=== PATIENT | female | born 1995 | race Hispanic/Latino ===

== ENCOUNTER 2020-07-08 11:27 | Emergency (ER) | payer OTHER, SELFPAY ==
--- NOTE | 2020-07-08 12:00 | ER ---
Nurse's Notes [facility] Name: Amy Rey Age: 25 yrs Sex: Female : 1995 Arrival Date: 07/08/2020 Time: 11:28 Bed Waiting Private MD: Diagnosis: Allergic contact dermatitis Presentation: 07/08 11:47 Chief complaint: Patient states: unsure if she is having a localized skin reaction to sv her Levemir injection. The rash is noted where she injects her insulin, noticed it Saturday. Coronavirus screen: Client denies travel out of the [place] in the last 14 days. At this time, the client does not indicate any symptoms associated with coronavirus-19. Ebola Screen: No symptoms or risks identified at this time. Onset: The symptoms/episode began/occurred suddenly. Anaphylaxis evaluation, no signs or symptoms of anaphylaxis were noted. Risk Assessment: Do you want to hurt yourself or someone else? Patient reports no desire to harm self or others. Onset of symptoms was July 05, 2020. 11:47 Method Of Arrival: Ambulatory sv 11:47 Acuity: TARAH 4 sv 11:50 Initial Sepsis Screen: Does the patient meet any 2 criteria? No. Patient's initial sv sepsis screen is negative. Does the patient have a suspected source of infection? No. Patient's initial sepsis screen is negative. Triage Assessment: 11:52 General: Appears in no apparent distress. comfortable, obese, well groomed, well sv developed, Behavior is calm, cooperative, appropriate for age. Pain: Denies pain. Neuro: Level of Consciousness is awake, alert, obeys commands, Oriented to person, place, time, situation, Moves all extremities. Full function Gait is steady. Respiratory: Respiratory effort is even, unlabored, Respiratory pattern is regular, symmetrical. Derm: Skin is pink, warm \T\ dry. Rash noted that is itchy, red, on umbilical area. Historical: - Allergies: 11:50 [place]; sv 11:50 Jake leches; sv - PMHx: 11:50 Diabetes - IDDM; sv - PSHx: 11:50 None; sv - Immunization history:: Flu vaccine is not up to date. - Social history:: Smoking status: Patient denies any tobacco usage or history of. Screenin:00 Abuse screen: Denies threats or abuse. Denies injuries from another. Nutritional sv screening: No deficits noted. Tuberculosis screening: No symptoms or risk factors identified. Fall Risk None identified. Assessment: 12:00 Reassessment: Patient appears in no apparent distress at this time. No changes from sv previously documented assessment. Patient and/or family updated on plan of care and expected duration. Pain level reassessed. Patient is alert, oriented x 3, equal unlabored respirations, skin warm/dry/pink. Vital Signs: 11:50 BP 127 / 94; Pulse 98; Resp 18; Temp 97.3; Pulse Ox 100% ; sv ED Course: 11:28 Patient arrived in ED. ag5 11:47 Arm band placed on. sv 11:49 Triage completed. sv 11:51 Estefany Rico FNP-C is [facility]. kb 11:51 Roel Huggins MD is Attending Physician. kb 12:00 Nurse Practitioner and/or Physician Data Warehousing Architect to see patient. sv 12:00 Patient has correct armband on for positive identification. sv 12:00 No provider procedures requiring assistance completed. Patient did not have IV access sv during this emergency room visit. Administered Medications: No medications were administered Outcome: 12:00 Discharge ordered by MD. kb 12:05 Discharged to home ambulatory. sv 12:05 Condition: stable 12:05 Discharge instructions given to patient, Instructed on discharge instructions, follow up and referral plans. Demonstrated understanding of instructions, follow-up care. 12:05 Patient left the ED. sv Signatures: Estefany Rico FNP-C FNP-Ckb Verde, Stephanie RN RN Nav Page ag5 Corrections: (The following items were deleted from the chart) 11:52 11:50 Pulse 98bpm; Resp 18bpm; Pulse Ox 100%; Temp 97.3F; sv sv
--- NOTE | 2020-07-08 12:00 | EDPHYS ---
Physician Documentation [facility] Name: Amy Rey Age: 25 yrs Sex: Female : 1995 Arrival Date: 07/08/2020 Time: 11:28 Bed Waiting Private MD: ED Physician Roel Huggins HPI: 07/08 14:08 This 25 yrs old Female presents to ER via Ambulatory with complaints of kb Allergic Reaction. 14:08 The patient presents with itching, rash. Onset: The symptoms/episode began/occurred 1 kb week(s) ago. Associated signs and symptoms: Pertinent positives: rash, Pertinent negatives: abdominal pain, Altered mental status chest pain, dysphagia, fever, headache, hives, Light headed nausea, shortness of breath, swelling, Syncope vomiting. Possible causes: insulin injection. At home the patient or guardian has treated the symptoms with nothing. Severity of symptoms: At their worst the symptoms were mild in the emergency department the symptoms are unchanged. The patient has not experienced similar symptoms in the past. The patient has not recently seen a physician. Pt reports she has been getting a rash in every spot she has been injecting her insulin this week. Reports itching to rash. Historical: - Allergies: 11:50 [place]; sv 11:50 Jake leches; sv - PMHx: 11:50 Diabetes - IDDM; sv - PSHx: 11:50 None; sv - Immunization history:: Flu vaccine is not up to date. - Social history:: Smoking status: Patient denies any tobacco usage or history of. ROS: 14:03 Constitutional: Negative for fever, chills, and weight loss, Cardiovascular: Negative kb for chest pain, palpitations, and edema, Respiratory: Negative for shortness of breath, cough, wheezing, and pleuritic chest pain, Abdomen/GI: Negative for abdominal pain, nausea, vomiting, diarrhea, and constipation, MS/Extremity: Negative for injury and deformity, Neuro: Negative for headache, weakness, numbness, tingling, and seizure. 14:03 Skin: Positive for rash, of the abdomen. Exam: 14:09 Constitutional: This is a well developed, well nourished patient who is awake, alert, kb and in no acute distress. Head/Face: Normocephalic, atraumatic. Chest/axilla: Normal chest wall appearance and motion. Nontender with no deformity. No lesions are appreciated. Cardiovascular: Regular rate and rhythm with a normal S1 and S2. No gallops, murmurs, or rubs. Normal PMI, no JVD. No pulse deficits. Respiratory: Lungs have equal breath sounds bilaterally, clear to auscultation and percussion. No rales, rhonchi or wheezes noted. No increased work of breathing, no retractions or nasal flaring. Abdomen/GI: Soft, non-tender, with normal bowel sounds. No distension or tympany. No guarding or rebound. No evidence of tenderness throughout. MS/ Extremity: Pulses equal, no cyanosis. Neurovascular intact. Full, normal range of motion. Neuro: Awake and alert, GCS 15, oriented to person, place, time, and situation. Cranial nerves II-XII grossly intact. Motor strength 5/5 in all extremities. Sensory grossly intact. Cerebellar exam normal. Normal gait. 14:09 Skin: rash a mild rash is noted, consistent with contact dermatitis, on the abdomen. Vital Signs: 11:50 BP 127 / 94; Pulse 98; Resp 18; Temp 97.3; Pulse Ox 100% ; sv MDM: 12:00 Patient medically screened. kb 14:03 Data reviewed: vital signs, nurses notes. Data interpreted: Pulse oximetry: on room air kb is 100 %. Interpretation: normal. Counseling: I had a detailed discussion with the patient and/or guardian regarding: the historical points, exam findings, and any diagnostic results supporting the discharge/admit diagnosis, the need for outpatient follow up, a family practitioner, to return to the emergency department if symptoms worsen or persist or if there are any questions or concerns that arise at home. Administered Medications: No medications were administered Disposition: 07/08/20 12:00 Discharged to Home. Impression: Allergic contact dermatitis. - Condition is Stable. - Discharge Instructions: Contact Dermatitis, [id number]. - Medication Reconciliation Form, Thank You Letter, Antibiotic Education, Prescription Opioid Use form. - Follow up: Emergency Department; When: As needed; Reason: Worsening of condition. Follow up: Private Physician; When: 2 - 3 days; Reason: Recheck today's complaints, Continuance of care, Re-evaluation by your physician. Addendum: 07/09/2020 13:19 Co-signature as Attending Physician, Roel Huggins MD I agree with the assessment and k dr plan of care. Signatures: Estefany Rico, MELANI-C EQUALIZING SAW OPERATOR-Yasmeen Israel, RN RN Roel Bush MD MD [facility] Corrections: (The following items were deleted from the chart) 07/08 12:05 12:00 07/08/2020 12:00 Discharged to Home. Impression: Allergic contact dermatitis. sv Condition is Stable. Forms are Medication Reconciliation Form, Thank You Letter, Antibiotic Education, Prescription Opioid Use. Follow up: Emergency Department; When: As needed; Reason: Worsening of condition. Follow up: Private Physician; When: 2 - 3 days; Reason: Recheck today's complaints, Continuance of care, Re-evaluation by your physician. kb
[2020-07-08 13:02] VITALS: BP 127/94; TEMP 97.3; O2SAT 100
== END 2020-07-08 12:05 | disposition home or self-care (01) ==
LOC: ER 11:27
DX: L23.9 Allergic contact dermatitis, unspecified cause (principal); E11.9 Type 2 diabetes mellitus without complications; Z91.018 Allergy to other foods
CPT/HCPCS: 99281

== ENCOUNTER 2020-09-13 03:08 | Inpatient (IN) | payer OTHER ==
[2020-09-13] MEDS ORDERED: PROMETHAZINE INJ 25 MG/ML AMP IM PRN (03:42)
[2020-09-13] MEDS ORDERED: CARBOPROST TROME 250 MCG/ML IM PRN (03:42)
[2020-09-13] MEDS ORDERED: BUTORPHANOL 1 MG/ML INJ IV PRN (03:42)
[2020-09-13] MEDS ORDERED: METHYLERGONOVINE 0.2MG/ML AMP IM PRN (03:42)
[2020-09-13] MEDS ORDERED: Ringers Lactate 1,000 ML IV PRN (04:00)
[2020-09-13] MEDS ORDERED: Ringers Lactate 1,000 ML IV SCH (04:00)
[2020-09-13] MEDS ORDERED: OXYTOCIN/LR 20 UNIT/1,000 ML BAG IV SCH ×2 (04:00→13:00)
--- OUTSIDE RECORDS SUMMARY | 2020-09-13 04:31 | XMS REPORT | Continuity of Care Document ---
:1995 Author Organization [facility] t Address [address] [place] [address] Care Team Providers Name Role Phone Julianna Goncalves Attending Clinician Problems This patient has no known problems. Allergies, Adverse Reactions, Alerts This patient has no known allergies or adverse reactions. Medications This patient has no known medications. Procedures This patient has no known procedures. Encounters Start End Encounter Admission Attending Care Care Encounter Source Date/Time Date/Time Type Type Clinicians Facility Department ID 2020-02-03 2020-02-03 Telephone [facility] [id number] 00:00:00 00:00:00 Ericka Levine MANAGER CONSUMER [id number] [facility] [id number] MATERNAL [id number] & CHILD [address] [place] [address] Results This patient has no known results.
[2020-09-13 05:37] VITALS: BMI 38.4
[2020-09-13 05:39] LABS: Absolute Lymphocytes (CBC) 2.7 K/uL (0.7-4.9); Basophils % 0.2 % (0-1.3); Lymphocytes % 31.7 % (15.3-44.8); RBC Red Blood Cell Count 4.61 M/uL (3.86-4.86)
[2020-09-13 05:53] LABS: Urine Appearance CLOUDY; Urine Bilirubin NEGATIVE (NEG); Urine Blood 1+ (NEG); Urine Color YELLOW; Urine Glucose NEGATIVE (NEG); Urine Microscopic Reflex ORDER UMIC; Urine Protein NEGATIVE (NEG); Urine Specific Gravity 1.025 (1.005-1.030)
[2020-09-13 06:02] LABS: Urine Bacteria 20-50 /HPF (<20); Urine RBC <5 /HPF (NONE SEEN)
[2020-09-13] MEDS ORDERED: INFLUENZA VACCINE (for 3y+) 0.5 ML DOSE IMVAC ONE (08:00)
--- NOTE | 2020-09-13 08:02 | PREOPHP ---
Date of Admission: 09/13/2020 History Of Present Illness: 25-year-old 5, para 2, followed antepartum, noted to be insulin- dependent diabetic, seen in conjunction with Dr. Daley, high-at risk paraprofessional in [facility]. The patient is Rh AB positive, immune to Rubella. COVID negative. Strep negative, now at 38 weeks and 2 to 3 days, has been advised by high-at risk paraprofessional, she will be delivered between 38 and 39 weeks. The patient is now 2 cm, 60% effaced, vertex applied, still somewhat posterior ruptur e membranes, very light meconium, no particulate matter. Full labor talk given. The patient is not really having good firm contractions yet. I think that that will change here in the next hour. She is still undecided about whether or not she wants epidural anesthesia. She had that with the last de livery. The patient is also noted to have uterine fibroid as an incidental finding. Family History: Noncontributory. Allergies: THE PATIENT HAS NO ALLERGIES. Physical Examination: HEENT: Clear. Pupils equal, round, and reactive to light and accommodation. Conjunctivae well perf used. No oral, lingual, or buccal lesions. Chest/Lungs: Clear. Heart: Without murmurs, thrills, heaves, or rubs. Breasts: Without masses on previous visits. Abdomen: Term size. Extremities: Clear without edema, cyanosis, or clubbing. Pelvic: As stated. Assessment/plan: Essentially healthy female, intrauterine gestation 38 weeks 2 to 3 days, insulin-de pendent diabetic for delivery. She is a silent carrier of thalassemia. negative. NBC/MODL Voice ID: [id number]
[2020-09-13] MEDS ORDERED: FENTANYL CITR 100 MCG/2 ML IV ONE (10:36)
[2020-09-13] MEDS ORDERED: ROPIVACAINE HCL 0.2% 20ML AMP IV ONE (10:39)
[2020-09-13] MEDS ORDERED: ROPIVACAINE HCL/PF 0.2% 10 ML VIAL IV ONE (10:39)
[2020-09-13] MEDS ORDERED: ROPIVACAINE HCL 100 ML EP ONE (11:20)
[2020-09-13] MEDS ORDERED: LIDOCAINE 1% MPF 30 ML VIAL ONE (11:24)
[2020-09-13] MEDS ORDERED: ACETAMINOPHEN 500 MG TAB PO PRN (12:12)
[2020-09-13] MEDS ORDERED: Oxycodone HCl/Acetaminophen 1 TAB TAB PO PRN ×2 (12:12)
[2020-09-13] MEDS ORDERED: BISACODYL 10 MG RECTAL SUPP RC PRN (12:12)
[2020-09-13] MEDS ORDERED: DIPHENHYDRAMINE 25 MG TAB/CAP PO PRN (12:12)
[2020-09-13] MEDS ORDERED: DOCUSATE NA/SENNA CONC 1 TAB PO PRN (12:12)
--- NOTE | 2020-09-13 12:36 | OP ---
Surgeon: Bernardo Miranda MD Indications For Procedure: This is a 25-year-old, 5, para 2, 38 weeks 2 days, followed antep artum, noted to be insulin-dependent diabetic, seen in conjunction with Dr. Avila who recommended de livery between 38 and 39 weeks. She is AB positive, immune, rubella, COVID negative, strep negative. This morning, she was 2 cm rupture of membranes, very light meconium, no particulate matter noted. FHTs normal, reactive throughout the labor, requested and received epidural anesthesia at 4 cm, went rapidly to complete second stage of 10 minutes or less, spontaneous vaginal delivery of an estimated 7 pounds female, Apgars 9 and 9. No episiotomy. No lacerations. Rapid Schultze delivery of the pl acenta, which was inspected and noted to be intact and normal, 350 cc or less blood loss. The patien t tolerated all procedures well. Blood sugars this morning in the 95 range. Final Diagnoses: Intrauterine gestation, 38 weeks 2 days, insulin-dependent diabetes, labor inductio n, vaginal delivery, epidural anesthesia, incidental uterine fibroid. NBC/MODL Voice ID: [id number] Report ID: [id number]
[2020-09-13] MEDS ORDERED: Ringers Lactate 2,000 ML IV ONE (15:08)
[2020-09-13] MEDS ORDERED: OXYTOCIN/LR 20 UNIT/1,000 ML BAG IV ONE (15:08)
[2020-09-13] MEDS: IBUPROFEN 600 MG TAB PO PRN (20:10)
[2020-09-13 23:54] LABS: RPR (Rapid Plasma Reagin) NON-REACT (NON-REACT)
[2020-09-14] MEDS: IBUPROFEN 600 MG TAB PO PRN ×2 (04:52→13:20)
--- NOTE | 2020-09-14 08:04 | DS ---
Hospital Course: 25-year-old 5, para 2, followed antepartum without complications other than as noted to be an insulin-dependent diabetic and had uterine fibroid, seen in consultation with Dr. Daley, high-director security risk management, [facility], 38 weeks 2 days. Delivered of a 6 pounds 11 ounces female, Apgars 9 and 9. Very slight meconium with rupture of membranes. Epidural anesthe oralia. No episiotomy. No lacerations. Less than 350 cc blood loss with Schultze delivery of the plac enta. Rh positive, immune to rubella, negative strep, negative COVID, , afebrile, ambulati ng, and voiding. Lochia is normal. Offered Tdap and flu shots. No post epidural problems. Request s no analgesics. Will be seen in my office in 6 weeks to report any temperature elevation of 100 deg laura or greater, severe pain, heavy bleeding, or any other type abnormalities. Final Diagnoses: Intrauterine gestation, 38 weeks 2 days, insulin-dependent diabetic, labor inductio n, vaginal delivery, epidural anesthesia. Tdap and flu shots offered. BRI/EZIO Voice ID: [id number] Report ID: [id number]
[2020-09-14 09:09] VITALS: TEMP 97.4
[2020-09-14] MEDS ORDERED: Tdap (Diph,Pertuss(Acell),Tet Vac) 0.5 ML SYR IMVAC ONE (11:08)
[2020-09-14] MEDS ORDERED: INFLUENZA VACCINE (for 3y+) 0.5 ML DOSE IMVAC ONE (11:38)
[2020-09-14 11:57] VITALS: BP 137/77
== END 2020-09-14 15:10 | disposition home or self-care (01) | DRG 807 ==
LOC: 2ND-WC 04:30
PROVIDERS: ADMIT Specialist; ATTEND Specialist
PROC: 10E0XZZ Delivery of Products of Conception, External Approach (ICD-10-PCS; principal; 2020-09-13)
PROC: 10907ZC Drainage of Amniotic Fluid, Therapeutic from Products of Conception, Via Natural or Artificial Opening (ICD-10-PCS; 2020-09-13)
PROC: 3E033VJ Introduction of Other Hormone into Peripheral Vein, Percutaneous Approach (ICD-10-PCS; 2020-09-13)
DX: O24.32 Unspecified pre-existing diabetes mellitus in childbirth (principal); Z37.0 Single live birth; O34.13 Maternal care for benign tumor of corpus uteri, third trimester; D25.9 Leiomyoma of uterus, unspecified; D56.8 Other thalassemias; E11.9 Type 2 diabetes mellitus without complications; Z79.4 Long term (current) use of insulin; Z20.828 Contact with and (suspected) exposure to other viral communicable diseases; Z23 Encounter for immunization
CPT/HCPCS: 36415; 81003; 81015; 85025; 86592; 86850; 86900; 86901; 87077; 87086; 87088; 87186; 90471; 90715; J0595; J2210; J2550; J2590; J2795; J3010; J7120; Q2035; U0003

== ENCOUNTER → 2022-01-21 | Day surgery (SDC) | payer OTHER ==
[~2022-01-21] MED LIST: BUPIVACAINE 0.5% PF 10 ML VIAL ONE; CIPROFLOXACIN 400mg IV 400 MG/200 ML BAG IV ONE; FAMOTIDINE 20 MG/2 ML VIAL IV ONE; FENTANYL CITR 100 MCG/2 ML ONE; GLYCOPYRROLATE 0.2 MG/ML SYR ONE; HYDROCODONE/APAP 7.5/325 MG TAB ONE; HYDROCODONE/APAP 7.5/325 MG TAB PO PRN; KETOROLAC 30 MG/ML INJ ONE; LIDOCAINE 1% MPF 5 ML VIAL ONE; MEPERIDINE HCL 25 MG/ML SYR ONE; METRONIDAZOLE 500mg IVPB 500 MG/100 ML BAG IV ONE; MIDAZOLAM HCL 2 MG/2 ML INJ ONE; MORPHINE 10 MG/ML VIAL ONE; MORPHINE 4 MG/ML SYR ONE; Mastisol Adhesive Liq ONE; NA CHLORIDE 0.9% 1,000 ML ONE; NEOSTIGMINE 1 MG/ML -5 ML ONE; ONDANSETRON 4 MG/2 ML VIAL ONE; ROCURONIUM 50 MG/5 ML VIAL IV ONE; dexAMETHasone 4 MG/ML VIAL ONE; propofoL 200 MG/20 ML VIAL IV ONE
[2022-01-21 08:03] LABS: Urine Blood Negative (Negative); Urine Glucose Negative (Negative); Urine Protein 2+ (Negative); Urine Specific Gravity >=1.030 (1.005-1.030)
[2022-01-21 08:36] LABS: Absolute Lymphocytes (CBC) 2.7 K/uL (0.7-4.9); Hematocrit 36.6 % (36.0-45.0); Lymphocytes % 36.8 % (15.3-44.8); MPV 7.6 fL (7.6-11.3); RBC Red Blood Cell Count 4.87 M/uL (3.86-4.86)
--- NOTE | 2022-01-21 08:49 | RAD REPORT ---
EXAM DESCRIPTION: CTAbdomen Pelvis W Contrast - 01/21/2022 8:41 am CLINICAL HISTORY: Abdominal pain. RLQ abdominal pain COMPARISON: No comparisons TECHNIQUE: Biphasic CT imaging of the abdomen and pelvis was performed with 100 ml non-ionic IV cont rast. All CT scans are performed using dose optimization technique as appropriate and may include automated exposure control or mA/KV adjustment according to patient size. FINDINGS: The lung bases are clear. The liver is diffusely fatty. Spleen, pancreas, adrenal glands and kidneys are within normal limits. No bowel obstruction, free air, free fluid or abscess. Large fat containing umbilical hernia is prese nt which demonstrates mild fluid and fat stranding suggesting incarceration. The appendix is normal. No evidence of significant lymphadenopathy. No suspicious bony findings. IMPRESSION: Large umbilical hernia suspected to be incarcerated. Fatty liver.
[2022-01-21 08:54] LABS: ALT/SGPT 75 U/L (12-78); AST/SGOT 30 U/L (15-37); Albumin 2.9 g/dL (3.4-5.0); Alkaline Phosphatase 103 U/L (45-117); BUN Blood Urea Nitrogen 12 mg/dL (7-18); Bicarbonate 23 mmol/L (21-32); Bilirubin Total 0.2 mg/dL (0.2-1.0); Glucose Level 134 mg/dL (74-106); Lipase 101 U/L (73-393); Potassium 3.7 mmol/L (3.5-5.1); Protein, Total 6.9 g/dL (6.4-8.2); Sodium Level 140 mmol/L (136-145)
--- NOTE | 2022-01-21 09:30 | ER ---
Nurse's Notes [facility] Name: Amy Rey Age: 26 yrs Sex: Female : 1995 Arrival Date: 01/21/2022 Time: 07:40 Bed 20 Private MD: Diagnosis: Incarcerated umbilical hernia Presentation: 01/21 07:55 Chief complaint: Patient states: pt presented to Ed reporting abdominal pain that perry radiates to right sided back. Coronavirus screen: Vaccine status: Patient reports being unvaccinated. Ebola Screen: Patient denies travel to an Ebola-affected area in the 21 days before illness onset. Initial Sepsis Screen: Does the patient meet any 2 criteria? HR > 90 bpm. Does the patient have a suspected source of infection? No. Patient's initial sepsis screen is negative. Risk Assessment: Do you want to hurt yourself or someone else? Patient reports no desire to harm self or others. Onset of symptoms was January 18, 2022. 07:55 Method Of Arrival: Ambulatory 07:55 Acuity: TARAH 3 perry Triage Assessment: 07:56 General: Appears in no apparent distress. Behavior is calm, cooperative. Pain: perry Complains of pain in right lower quadrant and left lower quadrant. GI: Abdomen is non-distended, obese, Bowel sounds present X 4 quads. Reports nausea. :. SPIN INSTRUCTOR: 07:56 LMP N/A - Irregular menses perry Historical: - Allergies: 07:56 citrus; perry 07:56 Jake leches; peryr - PMHx: 07:56 Diabetes - IDDM; polycystic ovarian syndome; perry - Immunization history:: Adult Immunizations up to date. - Social history:: Smoking status: Patient denies any tobacco usage or history of. Screenin:59 Abuse screen: Denies threats or abuse. Denies injuries from another. Nutritional perry screening: No deficits noted. Tuberculosis screening: No symptoms or risk factors identified. Fall Risk None identified. Assessment: 07:59 GI: Abd is soft and non tender X 4 quads. perry Vital Signs: 07:55 BP 125 / 95; Pulse 99; Resp 18; Temp 98.2(T); Pulse Ox 97% ; Weight 105.23 kg; Height 5 perry ft. 3 in. (160.02 cm); 07:55 Body Mass Index 41.10 (105.23 kg, 160.02 cm) perry ED Course: 07:40 Patient arrived in ED. as 07:51 Roel Huggins MD is Attending Physician. kdr 07:55 Gracie Villafuerte, RN is Primary Nurse. perry 07:56 Triage completed. perry 07:56 Arm band placed on. perry 07:59 Patient has correct armband on for positive identification. Bed in low position. perry 07:59 No provider procedures requiring assistance completed. perry 08:33 Inserted saline lock: 20 gauge in right antecubital area, using aseptic technique. perry 08:42 CT Abd/Pelvis - IV Contrast Only In Process Unspecified. EDMS 09:28 Owen Manzano MD is Hospitalizing Provider. kdr Administered Medications: 08:31 Drug: Zofran (Ondansetron) 4 mg Route: IVP; Site: right antecubital; perry 08:33 Follow up: Response: No adverse reaction peryr 08:31 Drug: NS 0.9% 1000 ml Route: IV; Rate: 1 bolus; Site: right antecubital; perry 08:31 Drug: Pepcid (famotidine) 20 mg Route: IVP; Site: right antecubital; perry 08:33 Follow up: Response: No adverse reaction perry 08:32 Drug: morphine 4 mg Route: IVP; Site: right antecubital; perry 08:33 Follow up: Response: No adverse reaction perry 09:52 Drug: Cipro (ciprofloxacin) 400 mg Volume: 200 ml; Route: IVPB; Infused Over: 60 mins; perry Site: right antecubital; Outcome: 09:29 Decision to Hospitalize by Provider. kdr 10:55 Patient left the ED. eb Signatures: Dispatcher [employer] EDPR Roel Huggins MD MD kdr Jeannine Guadarrama Elizabeth Gracie Villafuerte RN RN perry
--- NOTE | 2022-01-21 09:30 | EDPHYS ---
Physician Documentation [facility] Name: Amy Rey Age: 26 yrs Sex: Female : 1995 Arrival Date: 01/21/2022 Time: 07:40 Bed 20 Private MD: ED Physician Roel Huggins HPI: 01/21 09:30 This 26 yrs old Female presents to ER via Ambulatory with complaints of kdr Abdominal Pain, Back Pain. 09:30 The patient presents with abdominal pain in the periumbilical area. Onset: The kdr symptoms/episode began/occurred Patient states that on Saturday she was lifting her child and had pain in her abdomen around her umbilicus. Since then she has had persistent pain. It has somewhat worsened since then. She has not had any fever chills nausea or vomiting. The pain has been consistent and persistent. She has not had pain like this before. She otherwise appears nontoxic and not emergent in the ED.. The symptoms radiate to the right flank. Associated signs and symptoms: none. The symptoms are described as achy, sharp, steady. Modifying factors: The symptoms are alleviated by nothing, the symptoms are aggravated by coughing, breathing deeply, movement, touching the area. Severity of pain: At its worst the pain was moderate in the emergency department the pain is unchanged. The patient has not experienced similar symptoms in the past. The patient has not recently seen a physician. 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 - Social history:: Smoking status: Patient denies any tobacco usage or history of. ROS: 09:30 Constitutional: Negative for fever, chills, and weight loss, Eyes: Negative for injury, kdr pain, redness, and discharge, ENT: Negative for injury, pain, and discharge, Neck: Negative for injury, pain, and swelling, Cardiovascular: Negative for chest pain, palpitations, and edema, Respiratory: Negative for shortness of breath, cough, wheezing, and pleuritic chest pain, Back: Negative for injury and pain, : Negative for injury, bleeding, discharge, and swelling, MS/Extremity: Negative for injury and deformity, Skin: Negative for injury, rash, and discoloration, Neuro: Negative for headache, weakness, numbness, tingling, and seizure activity. Psych: Negative for depression, anxiety, suicide ideation, homicidal ideation, and hallucinations, Allergy/Immunology: Negative for hives, rash, and allergies, Endocrine: Negative for neck swelling, polydipsia, polyuria, polyphagia, and marked weight changes, Hematologic/Lymphatic: Negative for swollen nodes, abnormal bleeding, and unusual bruising. 09:30 Abdomen/GI: Positive for abdominal pain, nausea. Exam: 09:30 Constitutional: This is a well developed, well nourished patient who is awake, alert, kdr and in no acute distress. Head/Face: Normocephalic, atraumatic. Eyes: Pupils equal round and reactive to light, extra-ocular motions intact. Lids and lashes normal. Conjunctiva and sclera are non-icteric and not injected. Cornea within normal limits. Periorbital areas with no swelling, redness, or edema. Neck: Trachea midline, no thyromegaly or masses palpated, and no cervical lymphadenopathy. Supple, full range of motion without nuchal rigidity, or vertebral point tenderness. No Meningismus. Chest/axilla: Normal chest wall appearance and motion. Nontender with no deformity. No lesions are appreciated. Cardiovascular: Regular rate and rhythm with a normal S1 and S2. No gallops, murmurs, or rubs. Normal PMI, no JVD. No pulse deficits. Respiratory: Lungs have equal breath sounds bilaterally, clear to auscultation and percussion. No rales, rhonchi or wheezes noted. No increased work of breathing, no retractions or nasal flaring. Back: No spinal tenderness. No costovertebral tenderness. Full range of motion. Skin: Warm, dry with normal turgor. Normal color with no rashes, no lesions, and no evidence of cellulitis. MS/ Extremity: Pulses equal, no cyanosis. Neurovascular intact. Full, normal range of motion. Neuro: Awake and alert, GCS 15, oriented to person, place, time, and situation. Cranial nerves II-XII grossly intact. Motor strength 5/5 in all extremities. Sensory grossly intact. Cerebellar exam normal. Normal gait. Psych: Awake, alert, with orientation to person, place and time. Behavior, mood, and affect are within normal limits. 09:30 Abdomen/GI: Inspection: Focal abdominal pain in the periumbilical region. No mass is palpable but the patient is significantly obese which makes palpation and reduction of any significant hernia difficult. Vital Signs: 07:55 BP 125 / 95; Pulse 99; Resp 18; Temp 98.2(T); Pulse Ox 97% ; Weight 105.23 kg; Height 5 perry ft. 3 in. (160.02 cm); 07:55 Body Mass Index 41.10 (105.23 kg, 160.02 cm) perry MDM: 09:29 Patient medically screened. kdr 09:30 Data reviewed: vital signs, nurses notes, lab test result(s), radiologic studies. kdr Counseling: I had a detailed discussion with the patient and/or guardian regarding: the historical points, exam findings, and any diagnostic results supporting the discharge/admit diagnosis, lab results, radiology results, the need for further work-up and treatment in the hospital. Physician consultation: Owen Manzano MD regarding consult, patient's condition, need to come to ED to see patient, and will see patient in OR, shortly. 01/21 08:03 Order name: Urine Dipstick-Ancillary; Complete Time: 08:05 EDKS 01/21 08:04 Order name: Urine --Ancillary (enter results); Complete Time: 09:08 eb 01/21 08:07 Order name: CBC with Diff; Complete Time: 09:08 kdr 01/21 08:07 Order name: CMP; Complete Time: 09:08 kdr 01/21 08:07 Order name: Lipase; Complete Time: 09:08 kdr 01/21 08:07 Order name: CT Abd/Pelvis - IV Contrast Only; Complete Time: 09:08 kdr 01/21 08:07 Order name: IV Saline Lock; Complete Time: 08:33 kdr 01/21 08:07 Order name: Labs collected and sent; Complete Time: 08:33 kdr Administered Medications: 08:31 Drug: Zofran (Ondansetron) 4 mg Route: IVP; Site: right antecubital; perry 08:33 Follow up: Response: No adverse reaction perry 08:31 Drug: NS 0.9% 1000 ml Route: IV; Rate: 1 bolus; Site: right antecubital; perry 08:31 Drug: Pepcid (famotidine) 20 mg Route: IVP; Site: right antecubital; perry 08:33 Follow up: Response: No adverse reaction perry 08:32 Drug: morphine 4 mg Route: IVP; Site: right antecubital; perry 08:33 Follow up: Response: No adverse reaction perry 09:52 Drug: Cipro (ciprofloxacin) 400 mg Volume: 200 ml; Route: IVPB; Infused Over: 60 mins; perry Site: right antecubital; Disposition Summary: 01/21/22 09:29 Hospitalization Ordered Hospitalization Status: Observation kdr Provider: Owen Manzano Location: Operating Room kdr Condition: Fair kdr Problem: new kdr Symptoms: are unchanged kdr Bed/Room Type: Standard kdr Room Assignment: kdr Diagnosis - Incarcerated umbilical hernia kdr Forms: - Medication Reconciliation Form kdr - SBAR form kdr Signatures: Dispatcher [employer] Roel Thomas MD MD kdr Gracie Villafuerte RN RN
--- NOTE | 2022-01-21 10:42 | P.HP ---
Date of Service: 01/21/22 Chief complaint: Abdominal pain History of present Illness: Patient is a 26-year-old female who comes in with 2- day history of periumbilical pain which began after lifting one of her children. Pain is associated with nausea but no vomiting. Pain is constant. Patient denies diarrhea, constipation, blood per rectum, dysuria or hematuria. Patient denies sore throat, runny nose, cough, headaches, dizziness, chest pain fever or chills. Review of systems: Otherwise unremarkable Past medical history: Negative Past surgical history: Minor scalp surgery as a child Allergies: None Social history: Denies smoking, occasional use of alcohol Family history: Heart disease Vital signs: Stable, afebrile Physical exam: Awake alert oriented x3 Head and neck: Cranial nerves II through XII grossly within normal limits, no neck masses, no JVD, throat clear and neck is supple. Chest: Clear Heart: S1-S2 Abdomen: Soft, nondistended, positive bowel sounds with exquisite tenderness at the umbilicus. Diagnostic data: Laboratory data reviewed. CT of the abdomen pelvis shows incarcerated umbilical hernia with omentum in it. Assessment: Incarcerated umbilical hernia Plan/recommendation: Laparoscopic assisted repair of incarcerated umbilical hernia. IV antibiotics. Patient understands risk benefits alternatives and agrees to procedure. CC:
--- NOTE | 2022-01-21 12:04 | P.OP ---
Date of Service: 01/21/22 Preop diagnosis: Incarcerated umbilical hernia Postop diagnosis: Same Procedure performed: Laparoscopic assisted repair of incarcerated umbilical hernia Surgeon: Owen Manzano MD Computer Programming Professor: Buffy DE LOS SANTOS Estimated blood loss: Minimal Specimen: Hernia sac Findings: As above Anesthesia: General Complications: None Drains: None Fluids and blood products: Nonapplicable Disposition: Recovery room Operative note: Patient brought to the OR and placed in the supine position. General anesthesia begun. Patient prepped and draped in the usual sterile fashion. 15 blade used to make a 2 cm left upper quadrant incision. Subcutaneous tissue divided and fascia identified and divided. #1 Vicryl stay suture placed. Peritoneal cavity entered with sharp and blunt dissection. 12 mm trocar placed into the peritoneal cavity under direct vision. 5 mm trocar placed in the left lower quadrant under direct vision. Laparoscopy revealed incarcerated omentum into the umbilical hernia. Sharp and blunt dissection utilized to reduce the omentum into the peritoneal cavity. No evidence of bleeding or ischemic changes noted on the omentum. Marcaine 0.5% infiltrated in the periumbilical region. Then a 3 cm supraumbilical midline incision made. Subcutaneous tissue divided. Fascia identified and the hernia sac identified, and then hernia sac excised around the fascial edges. Then a Ventralex mesh, medium in size, placed into a 2 cm defect. And then #1 PDS used to close the fascial defect along with securing the mesh. Subcutaneous wounds irrigated bleeding controlled with cautery. Pneumoperitoneum reestablished the mesh had complete coverage of the hernia site. Then all trochars removed under direct vision. Subcutaneous tissue irrigated bleeding controlled with cautery. 3-0 chromic used to reapproximate subcutaneous tissue and closed skin. Sterile dressing applied. Patient awakened and taken to recovery room in good general condition. CC:
[2022-01-21] MEDS: HYDROMORPHONE HCL 1 MG/ML INJ ONE ×2 (12:20→12:40)
[2022-01-21 12:47] VITALS: TEMP 97.5; O2SAT 96
[2022-01-21 13:54] VITALS: BP 107/62
== END ==
LOC: ER 07:38 → OR 10:15 → ER 13:40
PROVIDERS: ATTEND Surgery
PROC: 0WUF4JZ Supplement Abdominal Wall with Synthetic Substitute, Percutaneous Endoscopic Approach (ICD-10-PCS; principal; 2022-01-21 10:30)
DX: K42.0 Umbilical hernia with obstruction, without gangrene (principal); E11.9 Type 2 diabetes mellitus without complications; E28.2 Polycystic ovarian syndrome
CPT/HCPCS: 85025; 36415; 81025; 88302; 81003; 83690; 80053; 74177; 96375; 96374; 99283; 49653; Q9967; J2704; J1100; J2250; J3010; J2175; J1170; J2710 ×2; J7030 ×2; J3490 ×2; J2405 ×3; J0744

== ENCOUNTER 2022-05-02 11:47 | Emergency (ER) | payer OTHER ==
--- OUTSIDE RECORDS SUMMARY | 2022-05-02 11:50 | XMS REPORT | Continuity of Care Document ---
:1995 Author Organization [facility] t Address [address] [place] [address] Care Team Providers Name Role Phone ERICKA PHAM Attending Clinician Unavailable Ericka Goncalves Attending Clinician Problems This patient has no known problems. Allergies, Adverse Reactions, Alerts Allergy Allergy Status Severity Reaction(s) Onset Inactive Treating Comm ents Source Name Type Date Date Clinician NO KNOWN Drug Active [facility] ALLERGIE Class ity of S [facility] Medications This patient has no known medications. Procedures This patient has no known procedures. Encounters Start End Encounter Admission Attending Care Care Encounter Source Date/Time Date/Time Type Type Clinicians Facility Department ID 2020-02-08 2020-02-08 Outpatient R ABBE PHAM [facility] [[email or web address] [id number] -[id number] [facility] 15:30:00 15:30:00 ERICKA [id number] ity o f [facility] 2020-02-03 2020-02-03 Telephone ABBE Pham [id number] 00:00:00 00:00:00 Ericka Levine [employer]SM[employer] HELPER [id number] [facility] [id number] MATERNAL [id number] & CHILD [address] [place] [address] 2019-12-18 2019-12-18 Outpatient R [facility] [id number] -[id number] [facility] 19:45:00 19:45:00 [id number] ity [facility] 2019-12-18 2019-12-18 Outpatient R [facility] [id number] [facility] 19:45:00 19:45:00 [facility] Results This patient has no known results.
--- NOTE | 2022-05-02 13:09 | RAD REPORT ---
EXAM DESCRIPTION: RAD - Ankle Left 3 View - 05/02/2022 12:53 pm CLINICAL HISTORY: Ankle pain, twisting injury COMPARISON: None. FINDINGS: No fracture, dislocation or periosteal reaction. No joint effusion seen. No joint space na rrowing. No soft tissue abnormality. Lateral soft tissue swelling is present. IMPRESSION: Soft tissue swelling with no left ankle fracture.
--- NOTE | 2022-05-02 13:26 | EDPHYS ---
Physician Documentation [facility] Name: Amy Rey Age: 27 yrs Sex: Female : 1995 Arrival Date: 05/02/2022 Time: 11:49 Bed Treatment Private MD: ED Physician Shelbi Caldwell HPI: 05/02 13:15 This 27 yrs old Female presents to ER via Ambulatory with complaints of Ankle cp Injury. 13:15 The patient presents with an injury, pain, that is acute. The complaints affect the cp left ankle. Onset: The symptoms/episode began/occurred today. Context: The patient can fully bear weight on the affected extremity. the patient is able to ambulate, with mild difficulty, pain started after stepping in hole in ground. Associated signs and symptoms: The patient has no apparent associated signs or symptoms. Historical: - Allergies: 12:03 citrus; iw 12:03 Jake leches; iw 12:03 NKDA; iw - Home Meds: 12:03 elderberry fruit and flower 460-115 mg oral cap [Active]; Vitamin D Oral [Active]; iw Vitamin C Oral [Active]; - PMHx: 12:03 Diabetes - IDDM; polycystic ovarian syndome; iw - PSHx: 12:03 hernia repair; iw ROS: 13:18 MS/extremity: Positive for pain, of the left ankle, Negative for decreased range of cp motion, deformity, paresthesias. 13:18 Neck: Negative for pain with movement, pain at rest, stiffness. cp 13:18 Back: Negative for pain at rest, pain with movement. 13:18 Constitutional: Negative for body aches, chills, fever. cp 13:18 Cardiovascular: Negative for chest pain. 13:18 Respiratory: Negative for cough, shortness of breath, wheezing. 13:18 Abdomen/GI: Negative for abdominal pain, nausea, vomiting, and diarrhea. 13:18 Skin: Negative for rash. 13:18 Neuro: Negative for headache, numbness, tingling, weakness. 13:18 All other systems are negative. cp Exam: 13:21 Constitutional: The patient appears in no acute distress, alert, awake, comfortable, cp non-toxic, well developed, well nourished, obese. 13:21 Head/Face: Normocephalic, atraumatic. cp 13:21 Musculoskeletal/extremity: Joints: the left ankle displays tenderness along anterior cp and medial joint line, no deformities, full AROM, Achilles tendon palpated and intact, no pain to palpation proximal fibula and/or base of left fifth metatarsal. Vital Signs: 12:02 BP 136 / 85; Pulse 88; Resp 16; Temp 97.1; Pulse Ox 99% on R/A; Weight 104.33 kg; iw Height 5 ft. 3 in. (160.02 cm); Pain 05/02; 12:02 Body Mass Index 40.74 (104.33 kg, 160.02 cm) iw MDM: 12:55 Patient medically screened. cp 13:25 Data reviewed: vital signs, nurses notes, radiologic studies, plain films. cp 13:25 Differential diagnosis: fracture, sprain, dislocation, Achilles tendon rupture. Test cp interpretation: by ED physician or midlevel provider: plain radiologic studies. Counseling: I had a detailed discussion with the patient and/or guardian regarding: the historical points, exam findings, and any diagnostic results supporting the discharge/admit diagnosis, radiology results, to return to the emergency department if symptoms worsen or persist or if there are any questions or concerns that arise at home. 05/02 12:05 Order name: XRAY Ankle LEFT 3 view; Complete Time: 13:16 iw 05/02 13:17 Interpretation: Report reviewed. cp 05/02 13:22 Order name: Aircast Ankle Splint; Complete Time: 13:58 cp 05/02 13:22 Order name: Ice pack cp Administered Medications: No medications were administered Disposition Summary: 05/02/22 13:25 Discharge Ordered Location: Home cp Problem: new cp Symptoms: have improved cp Condition: Stable cp Diagnosis - Sprain of unspecified ligament of left ankle, initial encounter cp Followup: cp - With: Rusty Pollack MD - When: 1 week - Reason: pain continues Discharge Instructions: - Discharge Summary Sheet cp - Ankle Sprain cp - RICE Therapy for Routine Care of Injuries cp Forms: - Medication Reconciliation Form cp - Thank You Letter cp - Antibiotic Education cp - Prescription Opioid Use cp Prescriptions: - Ibuprofen 800 mg Oral Tablet - take 1 tablet by ORAL route every 8 hours As needed take with food; 30 tablet; cp Refills: 0, Product Selection Permitted Signatures: Dispatcher Med[employer] Elisha Cline RN RN iw Itz Hogue PA PA cp Corrections: (The following items were deleted from the chart) 12:54 12:48 Ankle Left 2 View+RAD.RAD.BRZ ordered. EDMS EDMS
--- NOTE | 2022-05-02 13:26 | ER ---
Nurse's Notes [facility] Name: Amy Rey Age: 27 yrs Sex: Female : 1995 Arrival Date: 05/02/2022 Time: 11:49 Bed Treatment Private MD: Diagnosis: Sprain of unspecified ligament of left ankle, initial encounter Presentation: 05/02 12:02 Chief complaint: Patient states: twisted left ankle, stepped maxine hole , heard a pop. iw Coronavirus screen: At this time, the client does not indicate any symptoms associated with coronavirus-19. Ebola Screen: Patient negative for fever greater than or equal to 101.5 degrees Fahrenheit, and additional compatible Ebola Virus Disease symptoms Patient denies exposure to infectious person. Patient denies travel to an Ebola-affected area in the 21 days before illness onset. No symptoms or risks identified at this time. Initial Sepsis Screen: Does the patient meet any 2 criteria? No. Patient's initial sepsis screen is negative. Does the patient have a suspected source of infection? No. Patient's initial sepsis screen is negative. Risk Assessment: Do you want to hurt yourself or someone else? Patient reports no desire to harm self or others. Onset of symptoms was May 02, 2022. 12:02 Method Of Arrival: Ambulatory iw 12:02 Acuity: TARAH 4 iw Historical: - Allergies: 12:03 citrus; iw 12:03 Jake leches; iw 12:03 NKDA; iw - Home Meds: 12:03 elderberry fruit and flower 460-115 mg oral cap [Active]; Vitamin D Oral [Active]; iw Vitamin C Oral [Active]; - PMHx: 12:03 Diabetes - IDDM; polycystic ovarian syndome; iw - PSHx: 12:03 hernia repair; iw Vital Signs: 12:02 BP 136 / 85; Pulse 88; Resp 16; Temp 97.1; Pulse Ox 99% on R/A; Weight 104.33 kg; iw Height 5 ft. 3 in. (160.02 cm); Pain 8/10; 12:02 Body Mass Index 40.74 (104.33 kg, 160.02 cm) iw ED Course: 11:49 Patient arrived in ED. rg4 12:03 Triage completed. iw 12:04 Arm band placed on. iw 12:44 Shelbi Caldwell MD is Attending Physician. sp3 12:44 Itz Hogue PA is PHCP. cp 12:44 Shelbi Caldwell MD is Attending Physician. cp 12:55 XRAY Ankle LEFT 3 view In Process Unspecified. EDMS 13:08 Elisha Morales, RN is Primary Nurse. iw 13:24 Rusty Pollack MD is Referral Physician. cp Administered Medications: No medications were administered Outcome: 13:25 Discharge ordered by MD. cp 13:58 Patient left the ED. iw Signatures: Dispatcher [employer] EDMS Elisha Morales RN RN iw Itz Hogue PA PA Lexy Nelson rg4 Shelbi Caldwell MD MD sp3 Corrections: (The following items were deleted from the chart) 12:05 12:02 Pulse 88bpm; Resp 16bpm; Pulse Ox 99% RA; Temp 97.1F; 104.33 kg; Height 5 ft. 3 iw in.; BMI: 40.7; Pain 8/10; iw
[2022-05-02] MEDS ORDERED: IBUPROFEN 400 MG TAB ONE (13:51)
[2022-05-02 16:01] VITALS: BP 136/85; TEMP 97.1; O2SAT 99
== END 2022-05-02 13:58 | disposition home or self-care (01) ==
LOC: ER 11:47
DX: S93.402A Sprain of unspecified ligament of left ankle, initial encounter (principal); E11.9 Type 2 diabetes mellitus without complications; Z91.018 Allergy to other foods
CPT/HCPCS: 99282

== ENCOUNTER 2022-06-25 14:10 | Emergency (ER) | payer OTHER ==
--- OUTSIDE RECORDS SUMMARY | 2022-06-25 14:25 | XMS REPORT | Continuity of Care Document ---
:1995 Author Organization [facility] t Address [address] [place] [address] Care Team Providers Name Role Phone ERICKA PHAM Attending Clinician Unavailable Ericka Goncalves Attending Clinician Problems This patient has no known problems. Allergies, Adverse Reactions, Alerts Allergy Allergy Status Severity Reaction(s) Onset Inactive Treating Comm ents Source Name Type Date Date Clinician NO KNOWN Drug Active Univers ALLERGIE Class ity of S [facility] Medications This patient has no known medications. Procedures This patient has no known procedures. Encounters Start End Encounter Admission Attending Care Care Encounter Source Date/Time Date/Time Type Type Clinicians Facility Department ID 2020-02-08 2020-02-08 Outpatient R ABBE PHAM [facility] [id number] -[id number] [facility] 15:30:00 15:30:00 ERICKA [id number] ity o f [facility] 2020-02-03 2020-02-03 Telephone ABBE Pham [id number] 00:00:00 00:00:00 Ericka Levine [employer] MANAGER [id number] [facility] [id number] MATERNAL [id number] & CHILD [address] [place] [address] 2019-12-18 2019-12-[address] [facility] [id number] Univers 19:45:00 19:45:[id number] [facility] 2019-12-18 2019-12-[address] [facility] [id number] [facility] 19:45:00 19:45:00 [facility] Results This patient has no known results.
--- NOTE | 2022-06-25 14:58 | RAD REPORT ---
EXAM DESCRIPTION: CT - Ct Stroke Brain Wo Cont - 06/25/2022 2:49 pm CLINICAL HISTORY: facial palsy, right-sided facial droop and numbness, stroke protocol examination COMPARISON: No comparisons TECHNIQUE: Axial 5 millimeter thick images of the head were obtained without IV contrast. All CT scans are performed using dose optimization technique as appropriate and may include automated exposure control or mA/KV adjustment according to patient size. FINDINGS: No intracranial hemorrhage, mass, or cerebral edema. No acute infarction identifiable. No extra-axial fluid collections. Corrigan matter-white matter differentiation is preserved. Visualized portions of the mastoid air cells, paranasal sinuses, and orbits are unremarkable. Findings telephoned to Dr. Shelton 22:23 p.m. IMPRESSION: No CT evidence of acute intracranial process.
[2022-06-25] MEDS ORDERED: METOCLOPRAMIDE 10 MG/2mL INJ ONE (15:01)
[2022-06-25] MEDS ORDERED: ACETAMINOPHEN 500 MG TAB ONE (15:02)
[2022-06-25 15:08] LABS: Absolute Lymphocytes (CBC) 2.5 K/uL (0.7-4.9); Hematocrit 42.9 % (36.0-45.0); Lymphocytes % 31.7 % (15.3-44.8); MCV 79.1 fL (80-100); MPV 7.5 fL (7.6-11.3); RBC Red Blood Cell Count 5.42 M/uL (3.86-4.86)
[2022-06-25 15:10] LABS: Protime INR 1.04
[2022-06-25 15:30] LABS: ALT/SGPT 105 U/L (12-78); AST/SGOT 46 U/L (15-37); Albumin 3.6 g/dL (3.4-5.0); Alkaline Phosphatase 126 U/L (45-117); BUN Blood Urea Nitrogen 11 mg/dL (7-18); Bicarbonate 27 mmol/L (21-32); Bilirubin Total 0.4 mg/dL (0.2-1.0); Glomerular Filtration Rate 127 ml/min (=/>90); Glucose Level 110 mg/dL (74-106); Potassium 3.7 mmol/L (3.5-5.1); Protein, Total 8.3 g/dL (6.4-8.2); Sodium Level 136 mmol/L (136-145)
[2022-06-25 15:41] LABS: Urine Blood 2+ (Negative); Urine Glucose Negative (Negative); Urine Protein Negative (Negative); Urine Specific Gravity >=1.030 (1.005-1.030)
--- NOTE | 2022-06-25 15:45 | ER ---
Nurse's Notes [facility] Name: Amy Rey Age: 27 yrs Sex: Female : 1995 Arrival Date: 06/25/2022 Time: 14:12 Bed 15 Private MD: Diagnosis: Melvin Palsy Presentation: 06/25 14:41 Chief complaint: Patient states: she noticed that around 1300 today she had some ap3 numbness and tingling to the right side of her face with a droop to her mouth. patient does present to the ED today with a slight right sided facial droop. FSBS is 112. Coronavirus screen: At this time, the client does not indicate any symptoms associated with coronavirus-19. Ebola Screen: No symptoms or risks identified at this time. Initial Sepsis Screen: Does the patient meet any 2 criteria? No. Patient's initial sepsis screen is negative. Does the patient have a suspected source of infection? No. Patient's initial sepsis screen is negative. Risk Assessment: Do you want to hurt yourself or someone else? Patient reports no desire to harm self or others. Onset of symptoms was June 25, 2022 at 13:00. 14:41 Method Of Arrival: Ambulatory ap3 14:41 Acuity: TARAH 2 ap3 Triage Assessment: 14:43 Headache History: The patient has had previous headaches and this one is similar to ap3 previous episodes. General: Appears in no apparent distress. Behavior is calm, cooperative. Neuro: Level of Consciousness is awake, alert, obeys commands, Oriented to person, place, time, situation, Speech is normal, Facial droop on right. Cardiovascular: Patient's skin is warm and dry. Respiratory: Airway is patent Respiratory effort is even, unlabored, Respiratory pattern is regular, symmetrical. 14:45 Pain: Pain began 2 hours ago. 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 - Social history:: Smoking status: Patient denies any tobacco usage or history of. Patient uses alcohol, occasionally. Screenin:43 Abuse screen: Denies threats or abuse. Nutritional screening: No deficits noted. ap3 Tuberculosis screening: No symptoms or risk factors identified. 14:45 Fall Risk IV access (20 points). ko1 Assessment: 14:45 Pain: Denies pain. ko1 Vital Signs: 14:41 BP 122 / 76; Pulse 93; Resp 17; Pulse Ox 100% ; Weight 108.86 kg; Height 5 ft. 4 in. ap3 (162.56 cm); 14:45 BP 142 / 89; Pulse 98; ko1 15:30 BP 135 / 82; Pulse 90; ko1 14:41 Body Mass Index 41.20 (108.86 kg, 162.56 cm) ap3 NIH Stroke Scale Scores: 14:44 NIHSS Score: 2 ap3 ED Course: 14:12 Patient arrived in ED. rg4 14:14 Adam Shelton MD is Attending Physician. jr11 14:43 Triage completed. ap3 14:45 Arm band placed on right wrist. ap3 14:45 Patient has correct armband on for positive identification. Placed in gown. Bed in low ap3 position. Call light in reach. Side rails up X2. teletypesetter monitor on. Pulse ox on. NIBP on. Door closed. Noise minimized. 14:45 No provider procedures requiring assistance completed. ko1 15:00 Cristina Mock, RN is Primary Nurse. ko1 15:01 Basic Metabolic Panel Sent. kc6 15:01 CBC with Diff Sent. kc6 15:01 Protime (+inr) Sent. kc6 15:01 Hepatic Function Sent. kc6 15:01 Inserted saline lock: 20 gauge in right antecubital area, using aseptic technique. kc6 Blood collected. 16:22 IV discontinued, intact, bleeding controlled, No redness/swelling at site. Pressure ko1 dressing applied. Administered Medications: 15:17 Drug: Reglan (metoCLOPramide) 10 mg Route: IVP; Site: right antecubital; ko1 15:17 Drug: Tylenol 1000 mg Route: PO; ko1 Medication: 14:45 VIS not applicable for this client. ko1 Outcome: 15:45 Discharge ordered by . jr11 16:22 Discharged to home ambulatory, with family. ko1 16:22 Condition: stable 16:22 Discharge instructions given to patient, family, Instructed on discharge instructions, follow up and referral plans. medication usage, Demonstrated understanding of instructions, follow-up care, medications, Prescriptions given X 2. 16:24 Patient left the ED. ko1 NIH Stroke Scale - NIH Stroke Score Date: 06/25/2022 Time: 14:44 Total Score = 2 1a. Level of Consciousness (LOC) - 0(Alert) 1b. Level of Consciousness (LOC) (Month \T\ Age) - 0(Both) 1c. LOC Commands (Open \T\ Closes Eyes/General Accountant) - 0(Both) 2. Best Gaze (Lateral Gaze Paresis) - 0(Normal) 3. Visual Field Loss - 0(No visual loss) 4. Facial Palsy - 1(Minor Paralysis) 5a. Left Arm: Motor (10-second hold) - 0(No drift) 5b. Right Arm: Motor (10-second hold) - 0(No drift) 6a. Left Leg: Motor (5-second hold - always test supine) - 0(No drift) 6b. Right Leg: Motor (5-second hold - always test supine) - 0(No drift) 7. Limb Ataxia (finger/nose \T\ heel/ruiz - test with eyes open) - 0(Absent) 8. Sensory Loss (pinprick arms/legs/face) - 1(Mild to moderate loss) 9. Best Language: Aphasia (description/naming/reading) - 0(No aphasia) 10. Dysarthria (speech clarity - read or repeat words) - 0(Normal) 11. Extinction and Inattention (visual/tactile/auditory/spatial/personal) - 0(No abnormality) Initials: ap3 Signatures: Lexy Plunkett rg4 Chantel Garrison RN RN ap3 Adam Shelton MD MD jr11 Lily Oscar kc6 Cristina Mock RN RN ko1
--- NOTE | 2022-06-25 15:45 | EDPHYS ---
Physician Documentation [facility] Name: Amy Rey Age: 27 yrs Sex: Female : 1995 Arrival Date: 06/25/2022 Time: 14:12 Bed 15 Private MD: ED Physician Adam Shelton HPI: 06/25 14:46 This 27 yrs old Female presents to ER via Ambulatory with complaints of High jr11 Blood Sugar, Headache, Numbness Of Face. 14:46 This 27 yrs old Female presents to ER via Ambulatory with complaints of High jr11 Blood Sugar, Headache, Numbness Of Face. 14:46 Onset: The symptoms/episode began/occurred just prior to arrival, this morning, woke up jr11 with R sided facial droop. Associated signs and symptoms: Pertinent positives: Pertinent negatives: constipation, dry skin, nausea. Current symptoms: In the emergency department the patient's symptoms have worsened. Pt LKN last night, R facial droop and numbness, no other weakness. 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 - Social history:: Smoking status: Patient denies any tobacco usage or history of. Patient uses alcohol, occasionally. ROS: 14:46 All other systems are negative. jr11 Exam: 14:46 Constitutional: This is a well developed, well nourished patient who is awake, alert, jr11 and in no acute distress. Head/Face: Normocephalic, atraumatic. Eyes: Extra-ocular motions intact. Lids and lashes normal. Conjunctiva and sclera are non-icteric and not injected. Cornea within normal limits. Periorbital areas with no swelling, redness, or edema. ENT: Nares patent. No nasal discharge, no septal abnormalities noted. Oropharynx with no redness, swelling, or masses, exudates, or evidence of obstruction, uvula midline. Mucous membranes moist. Neck: Trachea midline, no thyromegaly or masses palpated, and no cervical lymphadenopathy. Supple, full range of motion without nuchal rigidity, or vertebral point tenderness. No Meningismus. Chest/axilla: Normal chest wall appearance and motion. Nontender with no deformity. No lesions are appreciated. Cardiovascular: Regular rate and rhythm with a normal S1 and S2. No gallops, murmurs, or rubs. Normal PMI, no JVD. No pulse deficits. Respiratory: Lungs have equal breath sounds bilaterally, clear to auscultation and percussion. No rales, rhonchi or wheezes noted. No increased work of breathing, no retractions or nasal flaring. Abdomen/GI: Soft, non-tender, with normal bowel sounds. No distension or tympany. No guarding or rebound. No evidence of tenderness throughout. Back: No spinal tenderness. No costovertebral tenderness. Full range of motion. MS/ Extremity: Pulses equal, no cyanosis. Neurovascular intact. Full, normal range of motion. Neuro: Awake and alert, GCS 15, oriented to person, place, time, and situation. No gross motor or sensory deficits except R sided facial paralysis, involves forehead Vital Signs: 14:41 BP 122 / 76; Pulse 93; Resp 17; Pulse Ox 100% ; Weight 108.86 kg; Height 5 ft. 4 in. ap3 (162.56 cm); 14:45 BP 142 / 89; Pulse 98; ko1 15:30 BP 135 / 82; Pulse 90; ko1 14:41 Body Mass Index 41.20 (108.86 kg, 162.56 cm) ap3 NIH Stroke Scale Scores: 14:44 NIHSS Score: 2 ap3 MDM: 14:45 Patient medically screened. jr11 14:46 Differential diagnosis: NIHSS = 2, [place] palsy, less likely central given deficits. jr11 Data reviewed: vital signs, nurses notes. 15:12 ED course: EKG interpreted by me shows normal sinus rhythm, normal axis, normal jr11 intervals, no acute ST changes. EKG normal.. 15:44 ED course: CT negative, pt not a TPA candidate given onset >4.5hr and likely peripheral jr11 palsy . 06/25 14:38 Order name: Basic Metabolic Panel jr11 06/25 14:38 Order name: CBC with Diff jr11 06/25 14:38 Order name: Hepatic Function jr11 06/25 14:38 Order name: Protime (+inr) [facility] 06/25 14:38 Order name: Glucose, Ancillary Testing; Complete Time: 15:24 EDMS 06/25 15:08 Order name: CBC with Automated Diff; Complete Time: 15:24 EDMS 06/25 14:38 Order name: CT Stroke Brain w/o Contrast [facility] 06/25 14:38 Order name: Stroke CXR 1 View 06/25 14:59 Order name: CT; Complete Time: 15:24 EDMS 06/25 15:11 Order name: Protime (+INR); Complete Time: 15:24 EDMS 06/25 15:41 Order name: Urine Dipstick-Ancillary; Complete Time: 15:44 EDMS 06/25 16:10 Order name: Basic Metabolic Panel; Complete Time: 16:15 EDMS 06/25 16:10 Order name: Liver (Hepatic) Function; Complete Time: 16:15 EDMS 06/25 14:38 Order name: EKG; Complete Time: 14:39 [facility] 06/25 14:38 Order name: Accucheck; Complete Time: 14:40 06/25 14:38 Order name: Cardiac monitoring; Complete Time: 14:40 06/25 14:38 Order name: EKG - Nurse/Tech; Complete Time: 15:01 06/25 14:38 Order name: IV Saline Lock; Complete Time: 15:01 06/25 14:38 Order name: Labs collected and sent; Complete Time: 15:01 06/25 14:38 Order name: NPO; Complete Time: 14:41 06/25 14:38 Order name: O2 Per Protocol; Complete Time: 14:40 06/25 14:38 Order name: O2 Sat Monitoring; Complete Time: 14:40 06/25 14:38 Order name: Stroke Swallow Screen; Complete Time: 15:43 06/25 14:52 Order name: Urine Test (obtain specimen); Complete Time: 15:41 06/25 16:00 Order name: RAD; Complete Time: 16:05 EDMS Administered Medications: 15:17 Drug: Reglan (metoCLOPramide) 10 mg Route: IVP; Site: right antecubital; ko1 15:17 Drug: Tylenol 1000 mg Route: PO; ko1 Disposition Summary: 06/25/22 15:45 Discharge Ordered Location: Home jr11 Condition: Stable jr11 Diagnosis - [place] Palsy jr11 Discharge Instructions: - Discharge Summary Sheet jr11 - Celaya Palsy, Adult jr11 Forms: - Medication Reconciliation Form jr11 - Thank You Letter jr11 - Antibiotic Education jr11 - Prescription Opioid Use jr11 Prescriptions: - Valtrex 1 gram Oral tablet - take 1 tablet by ORAL route 3 times per day; 21 tablet; Refills: 0, Product jr11 Selection Permitted - Prednisone 20 mg Oral Tablet - take 3 tablets by ORAL route once daily for 5 days; 15 tablet; Refills: 0, jr11 Product Selection Permitted NIH Stroke Scale - NIH Stroke Score Date: 06/25/2022 Time: 14:44 Total Score = 2 1a. Level of Consciousness (LOC) - 0(Alert) 1b. Level of Consciousness (LOC) (Month \T\ Age) - 0(Both) 1c. LOC Commands (Open \T\ Closes Eyes/Pulp Roller) - 0(Both) 2. Best Gaze (Lateral Gaze Paresis) - 0(Normal) 3. Visual Field Loss - 0(No visual loss) 4. Facial Palsy - 1(Minor Paralysis) 5a. Left Arm: Motor (10-second hold) - 0(No drift) 5b. Right Arm: Motor (10-second hold) - 0(No drift) 6a. Left Leg: Motor (5-second hold - always test supine) - 0(No drift) 6b. Right Leg: Motor (5-second hold - always test supine) - 0(No drift) 7. Limb Ataxia (finger/nose \T\ heel/ruiz - test with eyes open) - 0(Absent) 8. Sensory Loss (pinprick arms/legs/face) - 1(Mild to moderate loss) 9. Best Language: Aphasia (description/naming/reading) - 0(No aphasia) 10. Dysarthria (speech clarity - read or repeat words) - 0(Normal) 11. Extinction and Inattention (visual/tactile/auditory/spatial/personal) - 0(No abnormality) Initials: ap3 Signatures: Dispatcher [employer] Chantel Bates RN RN ap3 Adam Shelton MD MD jr11 Cristina Mock RN RN ko1
--- NOTE | 2022-06-25 15:58 | RAD REPORT ---
EXAM DESCRIPTION: RAD - Chest Single View - 06/25/2022 3:47 pm CLINICAL HISTORY: stroke COMPARISON: None TECHNIQUE: AP portable chest image was obtained 06/25/2022 3:47 pm . FINDINGS: Lung volumes are low accentuating interstitial pattern. Large body habitus and under penet rated technique further accentuates the lung pattern. No significant failure or volume overload. An a cute, focal lung parenchymal process is not seen. Heart and vasculature are normal. No measurable ple ural effusion and no pneumothorax. No acute bony abnormality seen. No acute aortic findings suspected . IMPRESSION: No acute cardiopulmonary process.
[2022-06-25 16:09] LABS: Bilirubin Direct < 0.1 mg/dL (0-0.2)
[2022-06-25 17:23] VITALS: O2SAT 100
[2022-06-25 17:32] VITALS: BP 135/82
--- NOTE | 2022-06-27 07:54 | EKG ---
Test Date: 2022-06-25 Test Time: 14:53:19 Acoustical Carpenter: NOLVIA MEASUREMENT RESULTS: Intervals: Rate: 85 ME: 160 QRSD: 80 QT: 382 QTc: 454 Proctor: P: 32 ME: 160 QRS: 34 T: 15 INTERPRETIVE STATEMENTS: Normal sinus rhythm Normal ECG No previous ECG available for comparison Electronically Signed On 06-27-22 07:48:41 CDT by Yobany Rahman
== END 2022-06-25 16:24 | disposition home or self-care (01) ==
LOC: ER 14:10
DX: G51.0 Bell's palsy (principal); Z91.018 Allergy to other foods; E11.9 Type 2 diabetes mellitus without complications; R29.702 NIHSS score 2
CPT/HCPCS: 93005; 85025; 80048; 36415; 85610; 82947; 80076; 81003; 70450; 71045; 96374; 99284; J2765

== ENCOUNTER 2023-07-09 09:58 | Emergency (ER) | payer OTHER, SELFPAY ==
--- NOTE | 2023-07-09 11:19 | EDPHYS ---
Physician Documentation [facility] Name: Amy Rey Age: 28 yrs Sex: Female : 1995 Arrival Date: 07/09/2023 Time: 09:58 Bed IW1 Private MD: ED Physician Damion Vallejo HPI: 07/09 13:31 This 28 yrs old Female presents to ER via Ambulatory with complaints of Ear kb Pain. 13:31 The patient presents with pain. The complaints affect the right ear. Onset: The kb symptoms/episode began/occurred last night. Modifying factors: The symptoms are alleviated by nothing, the symptoms are aggravated by nothing. Associated signs and symptoms: The patient has no apparent associated signs or symptoms. Severity of symptoms: At their worst the symptoms were moderate in the emergency department the symptoms are unchanged. The patient has not experienced similar symptoms in the past. The patient has not recently seen a physician. Pt reports pain and decreased hearing out of right ear that started last night. STates her left ear feels like it is starting to do the same. Reports cough, congestion and runny nose for 3 days. . Historical: - Allergies: 10:10 citrus; nj1 10:10 Jake leches; nj1 10:10 NKDA; nj1 - PMHx: 10:10 Diabetes - IDDM; polycystic ovarian syndome; nj1 - PSHx: 10:10 hernia repair; nj1 - Immunization history:: Client reports having NOT received the Covid vaccine. - Social history:: Smoking status: Patient denies any tobacco usage or history of. ROS: 12:45 Constitutional: Negative for fever, chills, and weight loss, kb 12:45 ENT: Positive for ear pain, rhinorrhea, sinus congestion, 12:45 Respiratory: Positive for cough, 12:45 All other systems are negative, Exam: 12:45 Constitutional: This is a well developed, well nourished patient who is awake, alert, kb and in no acute distress. Head/Face: Normocephalic, atraumatic. Cardiovascular: Regular rate Respiratory: Respirations even and unlabored. No increased work of breathing. Talking in full sentences Skin: Warm, dry with normal turgor. Normal color. MS/ Extremity: Pulses equal, no cyanosis. Neurovascular intact. Full, normal range of motion. Neuro: Awake and alert, GCS 15, oriented to person, place, time, and situation. Moves all extremities. Normal gait. 12:45 ENT: Ear canal(s): swelling, that is moderate, of the right canal, TM's: are normal, Nose: is normal, Mouth: is normal, Posterior pharynx: is normal, Vital Signs: 10:04 BP 132 / 71; Pulse 79; Resp 16; Temp 98.1; Pulse Ox 99% ; Weight 94.35 kg; Height 5 ft. nj1 3 in. ; Pain 07/02; 10:04 Body Mass Index 36.85 (94.35 kg, 160.02 cm) nj1 10:04 Pain Scale: Adult nj1 MDM: 10:03 Patient medically screened. kb 13:31 Differential diagnosis: otitis media, otitis externa, ruptured TM, foreign body, acute kb otalgia. Data reviewed: vital signs, nurses notes. Counseling: I had a detailed discussion with the patient and/or guardian regarding the historical points, exam findings, and any diagnostic results supporting the discharge/admit diagnosis, lab results, the need for outpatient follow up, a family practitioner, to return to the emergency department if symptoms worsen or persist or if there are any questions or concerns that arise at home. 07/09 10:10 Order name: Flu; Complete Time: 11:17 kb 07/09 10:10 Order name: COVID-19 SARS RT PCR; Complete Time: 11:02 kb 07/09 10:10 Order name: Strep kb 07/09 10:41 Order name: Throat Culture EDMS Administered Medications: 11:33 Drug: Ibuprofen PO 800 mg PO once Route: PO; nj1 Disposition: 14:22 Co-signature as Attending Physician, Damion Vallejo MD I reviewed the patient's care rn provided by the Advanced Practice Provider and agree with the diagnosis and treatment plan. Disposition Summary: 07/09/23 11:18 Discharge Ordered Notes: Location: Home kb Condition: Stable kb Diagnosis - Unspecified otitis externa, right ear kb - Acute upper respiratory infection, unspecified kb Followup: kb - With: Emergency Department - When: As needed - Reason: Worsening of condition Followup: kb - With: Private Physician - When: 2 - 3 days - Reason: Recheck today's complaints, Continuance of care, Re-evaluation by your physician Discharge Instructions: - Discharge Summary Sheet kb - Otitis Externa, [id number] kb - Upper Respiratory Infection, Adult, [id number] kb - Ear Drops, Adult, [id number] kb - Viral Respiratory Infection, [id number] kb Forms: - Medication Reconciliation Form kb - Thank You Letter kb - Antibiotic Education kb - Prescription Opioid Use kb - Patient Portal Instructions kb - Leadership Thank You Letter kb Prescriptions: - Ciprodex 0.3-0.1 % Otic drops, suspension - instill 4 drops OTIC route every 12 hours for 7 days , for ears ONLY; 1 unit; kb Refills: 0, Product Selection Permitted Signatures: Dispatcher [employer] EDEstefany Sosa, TIRE SERVICE SUPERVISOR-C TIRE SERVICE SUPERVISOR-Damion Ram MD MD rn Reba Harmon RN RN nj1
--- NOTE | 2023-07-09 11:19 | ER ---
Nurse's Notes [facility] Name: Amy Rey Age: 28 yrs Sex: Female : 1995 Arrival Date: 07/09/2023 Time: 09:58 Bed IW1 Private MD: Diagnosis: Unspecified otitis externa, right ear;Acute upper respiratory infection, unspecified Presentation: 07/09 10:04 Chief complaint: Patient states: Buzzing noise, pain to right ear. Left ear is getting nj1 clogged. Coronavirus screen: Vaccine status: Patient reports being unvaccinated. Ebola Screen: Patient denies travel to an Ebola-affected area in the 21 days before illness onset. Initial Sepsis Screen: Does the patient meet any 2 criteria?. Initial Sepsis Screen: Does the patient have a suspected source of infection? No. Patient's initial sepsis screen is negative. Risk Assessment: Do you want to hurt yourself or someone else? Patient reports no desire to harm self or others. Onset of symptoms was July 07, 2023. 10:04 Method Of Arrival: Ambulatory [facility] 10:04 Acuity: TARAH 4 nj1 Triage Assessment: 10:11 General: Appears in no apparent distress. uncomfortable, Behavior is calm, cooperative, nj1 appropriate for age. Pain: Complains of pain in right ear Pain currently is 10 out of 10 on a pain scale. EENT: Reports decreased hearing in right ear since yesterday. Neuro: No deficits noted. Cardiovascular: No deficits noted. Respiratory: No deficits noted. Historical: - Allergies: 10:10 citrus; nj1 10:10 Jake leches; nj1 10:10 NKDA; nj1 - PMHx: 10:10 Diabetes - IDDM; polycystic ovarian syndome; nj1 - PSHx: 10:10 hernia repair; nj1 - Immunization history:: Client reports having NOT received the Covid vaccine. - Social history:: Smoking status: Patient denies any tobacco usage or history of. Assessment: 11:35 Reassessment: Patient appears in no apparent distress at this time. Patient and/or nj1 family updated on plan of care and expected duration. Pain level reassessed. Patient is alert, oriented x 3, equal unlabored respirations, skin warm/dry/pink. Vital Signs: 10:04 BP 132 / 71; Pulse 79; Resp 16; Temp 98.1; Pulse Ox 99% ; Weight 94.35 kg; Height 5 ft. nj1 3 in. ; Pain 10; 10:04 Body Mass Index 36.85 (94.35 kg, 160.02 cm) nj1 10:04 Pain Scale: Adult [facility] ED Course: 10:01 Patient arrived in ED. mr 10:03 Estefany Rico FNP-C is [facility]. kb 10:03 Damion Vallejo MD is Attending Physician. kb 10:10 Triage completed. nj1 10:11 Arm band placed on right wrist. nj1 11:38 Provided Education on: Discharge instructions. nj1 11:38 No provider procedures requiring assistance completed. Patient did not have IV access nj1 during this emergency room visit. Administered Medications: 11:33 Drug: Ibuprofen PO 800 mg PO once Route: PO; nj1 Outcome: 11:18 Discharge ordered by . kb 11:38 Discharged to home ambulatory, nj1 11:38 Condition: stable 11:38 Discharge instructions given to patient, Instructed on discharge instructions, follow up and referral plans. medication usage, Demonstrated understanding of instructions, follow-up care, medications, Prescriptions given X 1, 11:39 Patient left the ED. nj1 Signatures: Estefany Rico FNP-C FNP-Jossy Diaz, Albaro Reg mr Reba Harmon, RN RN nj1
[2023-07-09] MEDS ORDERED: IBUPROFEN 400 MG TAB ONE (11:46)
[2023-07-09 11:52] VITALS: BP 132/71; TEMP 98.1; O2SAT 99
== END 2023-07-09 11:39 | disposition home or self-care (01) ==
LOC: ER 09:58
DX: H60.91 Unspecified otitis externa, right ear (principal); J06.9 Acute upper respiratory infection, unspecified; Z20.822 Contact with and (suspected) exposure to COVID-19
CPT/HCPCS: 87070; 87081; 87635; 87804; 99283

== ENCOUNTER 2023-07-10 12:05 | Emergency (ER) | payer SELFPAY ==
--- OUTSIDE RECORDS SUMMARY | 2023-07-10 12:08 | XMS REPORT | Continuity of Care Document ---
:[address] [facility] [place], [place] t Address [address] [facility] [address] [place] [address] Care Team Providers Name Role Phone ERICKA PHAM Attending Clinician Unavailable Ericka Goncalves Attending Clinician Problems This patient has no known problems. Allergies, Adverse Reactions, Alerts Allergy Allergy Status Severity Reaction(s) Onset Inactive Treating Comm ents Source Name Type Date Date Clinician NO KNOWN Drug Active Univers ALLERGIE Class ity of S [facility] Medications This patient has no known medications. Procedures This patient has no known procedures. Encounters Start End Encounter Admission Attending Care Care Encounter Source Date/Time Date/Time Type Type Clinicians Facility Department ID 2022-06-27 2022-06-27 Outpatient SAMUEL BAKER [id number] [place] 10:12:53 10:12:53 [id number] [facility] 2020-02-08 2020-02-08 Outpatient R ABBE PHAM [facility] [id number] Univers 15:30:00 15:30:00 ERICKA [id number] abelardo frost [facility] 2020-02-03 2020-02-03 Telephone ABBE Pham [id number] 00:00:00 00:00:00 Ericka Levine FURNITURE CLEANER [id number] REGIONAL [id number] MATERNAL [id number] & CHILD 107 [facility] 2019-12-18 2019-12-18 Outpatient R [facility] [id number] Univers 19:45:00 19:45:00 [id number] [facility] 2019-12-18 2019-12-18 Outpatient R [facility] [id number] Univers 19:45:00 19:45:00 [facility] Results Test Description Test Time Test Comments Results Result Comments Source TSH, THIRD GENERATION 2022-06-28 06:46:44 Test Item Value Reference Range Interpretation Comme nts TSH, THIRD GENERATION (test code = 2821) 0.929 UIU/ML 0.400-4.100 HEMOGLOBIN [id number] 06:03:59 Test Item Value Reference Range Interpretation Comments HEMOGLOBIN A1c (test 6.8 % 4.2-5.6 H AMERIC AN DIABETES code = 67241) ASSOCIATION IDELINES FOR HGB A1C: PREDIABETES/INC REASED RISK . . . . . . . 5.7 -6.4% DIAGNOSIS OF DI ABETES . . . . . . . . . >=6 .5% WITH CONFIRMATION OR APPROPRIATE SYMPTOMS NOTE: ASSAY MAY BE AFFECTED BY HEMOGLOBINOPATH IES (SICKLE CELL ANEMIA, S- C DISEASE, OTHERS) OR STEPHANIE FICIALLY LOWERED BY DECR EASED RED CELL SURVIVAL ( HEMOLYTIC ANEMIAS, BLOOD LOSS, ETC.). CONSIDER ALTERN ATE TESTING OR LABORATORY C ONSULTATION. LIPID [id number] 03:29:16 Test Item Value Reference Range Interpretation Comments CHOLESTEROL (test 214 MG/DL <200 H code = 2210) TRIGLYCERIDES (test 112 MG/DL <150 code = 2232) HDL CHOLESTEROL (test 41 MG/DL >39 code = 2220) CALC LDL CHOL (test 150 MG/DL <100 H NOTE: C ALCULATED LDL code = 2237) IS BASED ON CHARLENE-RIVERA METHOD WHICHINCLUDES ADJUSTABLE TRIGLYCERIDE:VL DL CHOLESTEROL RAT IO.THIS FACTOR VARIES B Y MEASURED TRIGLY CERIDE AND NON-HDLCHOL ESTEROL CONCENTRATIONS WITH INCREASED CALCU LATED LDL SEENIN HIGH ER TRIGLYCERIDE OR LOWER NON-HDL SPECIME NS. FOR MOREINFORMATION , SEE CLIENT ANNOUNCE MENT AT [email or web address] RISK RATIO LDL/HDL 3.66 RATIO <3.22 H UNLESS O THERWISE (test code = 2238) INDICATED , ALL TESTING PERFORMED [facility]. [address] [facility] [place] [address] LABOR ATORY DIRECTOR: Ismael HOUIA NUMBER [id number] CAP ACCREDITATION N O. [id number]
--- NOTE | 2023-07-10 12:20 | EDPHYS ---
Physician Documentation [facility] Name: Amy Rey Age: 28 yrs Sex: Female : 1995 Arrival Date: 07/10/2023 Time: 12:05 Bed DX4 Private MD: ED Physician Shelbi Caldwell HPI: 07/10 12:16 This 28 yrs old Female presents to ER via Ambulatory with complaints of Ear sp3 Pain. 12:16 58-year-old female history of polycystic ovarian disease, diabetes who was seen sp3 yesterday by Leeanne midlevel provider for otitis externa and sent home on Ciprodex drops now presents again to the ED for worsening symptoms and pain now bilateral ears extending into her jaw. She states she has been using her drops on both sides. She denies any other injury, trauma, symptoms including fever, chest pain, throat pain, neck pain, headache, or any other signs or symptoms on ROS at this time.. Historical: - Allergies: 12:12 citrus; mb9 12:12 NKDA; mb9 12:12 Jake leches; mb9 - PMHx: 12:12 Diabetes - IDDM; polycystic ovarian syndome; mb9 - PSHx: 12:12 hernia repair; mb9 - Immunization history:: Adult Immunizations up to date. - Social history:: Smoking status: Patient denies any tobacco usage or history of. ROS: 12:17 Constitutional: Negative for fever, chills, and weight loss, Eyes: Negative for injury, sp3 pain, redness, and discharge, Neck: Negative for injury, pain, and swelling, Cardiovascular: Negative for chest pain, palpitations, and edema, Respiratory: Negative for shortness of breath, cough, wheezing, and pleuritic chest pain, Abdomen/GI: Negative for abdominal pain, nausea, vomiting, diarrhea, and constipation, Back: Negative for injury and pain, 12:17 All other systems are negative, Exam: 12:17 ENT: Mild erythema and swelling bilateral external auditory canals.. sp3 Vital Signs: 12:10 BP 151 / 98; Pulse 97; Resp 18; Temp 98.1; Pulse Ox 100% ; Weight 94.35 kg; Height 5 mb9 ft. 3 in. ; Pain 07/02; 12:10 Body Mass Index 36.85 (94.35 kg, 160.02 cm) mb9 12:10 Pain Scale: Adult mb9 MDM: 12:18 Data reviewed: vital signs, old medical records. ED course: Patient has mild erythema sp3 to bilateral external ear canals without significant drainage. I will add Augmentin which will cover external and middle ear infection along with diclofenac NSAID for pain control. We will give her ENT follow-up.. 12:19 Patient medically screened. sp3 Administered Medications: No medications were administered Disposition Summary: 07/10/23 12:19 Discharge Ordered Notes: Location: Home sp3 Condition: Stable sp3 Diagnosis - Otitis externa, ear pain sp3 Followup: sp3 - With: Yasmeen Sanchez MD - When: Upon discharge from the Emergency Department - Reason: Recheck today's complaints Discharge Instructions: - Discharge Summary Sheet sp3 - Otitis Externa sp3 Forms: - Medication Reconciliation Form sp3 - Thank You Letter sp3 - Antibiotic Education sp3 - Prescription Opioid Use sp3 - Patient Portal Instructions sp3 - Leadership Thank You Letter sp3 Prescriptions: - Augmentin 875-125 mg Oral Tablet - take 1 tablet ORAL route every 12 hours for 10 days; 20 tablet; Refills: 0, sp3 Product Selection Permitted - Diclofenac Sodium 75 mg Oral Tablet Sustained Release - take 1 tablet ORAL route 2 times per day; 30 tablet; Refills: 0, Product sp3 Selection Permitted Signatures: Shelbi Caldwell MD MD sp3 Jossy Rico RN RN mb9
--- NOTE | 2023-07-10 12:20 | ER ---
Nurse's Notes [facility] Name: Amy Rey Age: 28 yrs Sex: Female : 1995 Arrival Date: 07/10/2023 Time: 12:05 Bed DX4 Private MD: Diagnosis: Otitis externa, ear pain Presentation: 07/10 12:10 Chief complaint: Patient states: "I was here yesterday for my right ear pain and sent mb9 me home with ear drops. Now they are both painful, my whole face hurts now and have a bad headache. I'm having trouble hearing out of them both now". Coronavirus screen: Vaccine status: Patient reports receiving the 2nd dose of the covid vaccine. Ebola Screen: No symptoms or risks identified at this time. Initial Sepsis Screen: Does the patient meet any 2 criteria? No. Patient's initial sepsis screen is negative. Does the patient have a suspected source of infection? No. Patient's initial sepsis screen is negative. Risk Assessment: Do you want to hurt yourself or someone else? Patient reports no desire to harm self or others. Onset of symptoms was July 10, 2023. 12:10 Method Of Arrival: Ambulatory mb9 12:10 Acuity: TARAH 4 mb9 Triage Assessment: 12:12 General: Appears uncomfortable, Behavior is anxious, crying. Pain: Complains of pain in mb9 right ear and left ear Pain does not radiate. Pain currently is 10 out of 10 on a pain scale. Quality of pain is described as aching, throbbing, Pain began suddenly, Is continuous. EENT: Reports decreased hearing pain. Neuro: Bhakta Agitation-Sedation Scale (RASS): 0 - Alert and Calm Level of Consciousness is awake, alert, obeys commands, Oriented to person, place, time, situation, Appropriate for age. Cardiovascular: Patient's skin is warm and dry. Respiratory: Airway is patent Respiratory effort is even, unlabored, Respiratory pattern is regular, symmetrical, Breath sounds are clear bilaterally. GI: Reports nausea. : No signs and/or symptoms were reported regarding the genitourinary system. Derm: Skin is pink, warm \\T\\ dry. Musculoskeletal: Range of motion: intact in all extremities. Historical: - Allergies: 12:12 citrus; mb9 12:12 NKDA; mb9 12:12 Jake leches; mb9 - PMHx: 12:12 Diabetes - IDDM; polycystic ovarian syndome; mb9 - PSHx: 12:12 hernia repair; mb9 - Immunization history:: Adult Immunizations up to date. - Social history:: Smoking status: Patient denies any tobacco usage or history of. Screenin:14 [facility] ED Fall Risk Assessment (Adult) History of falling in the last 3 months, mb9 including since admission No falls in past 3 months (0 pts) Confusion or Disorientation No (0 pts) Intoxicated or Sedated No (0 pts) Impaired Gait No (0 pts) Mobility Assist Device Used No (0 pt) Altered Elimination No (0 pt) Score/Fall Risk Level 0 - 2 = Low Risk Oriented to surroundings, Maintained a safe environment, Educated pt \\T\\ family on fall prevention, incl call for assistance when getting out of bed. Abuse screen: Denies threats or abuse. Nutritional screening: No deficits noted. Tuberculosis screening: No symptoms or risk factors identified. Vital Signs: 12:10 BP 151 / 98; Pulse 97; Resp 18; Temp 98.1; Pulse Ox 100% ; Weight 94.35 kg; Height 5 mb9 ft. 3 in. ; Pain 10/10; 12:10 Body Mass Index 36.85 (94.35 kg, 160.02 cm) mb9 12:10 Pain Scale: Adult mb9 ED Course: 12:09 Patient arrived in ED. mg5 12:10 Arm band placed on. mb9 12:12 Shelbi Caldwell MD is Attending Physician. sp3 12:12 Triage completed. mb9 12:14 No provider procedures requiring assistance completed. mb9 12:18 Yasmeen Sanchez MD is Referral Physician. sp3 Administered Medications: No medications were administered Medication: 12:14 VIS not applicable for this client. mb9 Outcome: 12:19 Discharge ordered by . sp3 12:31 Discharged to home ambulatory, iw 12:31 Condition: good 12:31 Discharge instructions given to patient, family, Instructed on discharge instructions, follow up and referral plans. medication usage, Demonstrated understanding of instructions, follow-up care, medications, Prescriptions given X 2, 12:32 Patient left the ED. iw Signatures: Elisha Morales RN RN iw Shelbi Caldwell MD MD sp3 Jossy Rico, RN RN mb9 Cee Light mg5
[2023-07-10 13:02] VITALS: BP 151/98; TEMP 98.1; O2SAT 100
== END 2023-07-10 12:32 | disposition home or self-care (01) ==
LOC: ER 12:05
DX: H60.93 Unspecified otitis externa, bilateral (principal); E11.9 Type 2 diabetes mellitus without complications; Z91.018 Allergy to other foods

== ENCOUNTER 2024-06-02 19:10 | Emergency (ER) | payer SELFPAY ==
--- OUTSIDE RECORDS SUMMARY | 2024-06-02 19:13 | XMS REPORT | Continuity of Care Document ---
Author Name Unknown Address [address] [place] [address] [facility] thconnect Address [address] [place] [address] Care Team Providers Care Railroad Accountant Name Role Phone PCP, PATIENT DOES NOT HAVE A Primary Care Physic sigrid Unavailable WARREN RAZA Attending Clinician Unavailable Sol Arnold Attending Clinici an SOL CHAVES Attending Clinician U ERICKA Yarbrough Attending Clinician UnavailEricka Do Attending Clinician SOL CHAVES Admitting Clinician U theodore Problems Condition Name Condition Details Condition Category Status Onset Date Resolution Date Last Treatment Date Treating Clinician Comments Source Anemia due to acute blood loss Anemia due to acute blood loss Disease Active 2017-09 00:00: 00 [facility] 39 weeks gestation of 39 weeks gestation of Disease Active 2017-09 00:00: 00 [facility] Liveborn by vaginal delivery Liveborn by vaginal delivery Disease Active 2017-09 00:00: 00 [facility] Obesity (BMI 30-39.9) Obesity (BMI 30-39.9) Disease Active 2017-09 00:00: 00 [facility] Decreased movement Decreased movement Disease Active 2017-09 00:00: 00 [facility] 38 weeks gestation of 38 weeks gestation of Disease Active 2017-09 00:00: 00 [facility] Threatened labor at term Threatened labor at term Disease Active 2017-09 00:00: 00 [facility] Supervisio n of high risk , antepartum , first trimester Supervisio n of high risk , antepartum , first trimester Disease Active 12-19 00:00: 00 [facility] Multiparit y Multiparit y Disease Active 12-19 00:00: 00 [facility] History of spontaneou s , currently History of spontaneou s , currently Disease Active 12-19 00:00: 00 [facility] Obesity in Obesity in Disease Active 12-19 00:00: 00 [facility] Absence of menstruati on Absence of menstruati on Disease Active 10-28 00:00: 00 [facility] Allergies, Adverse Reactions, Alerts Allergy Name Allergy Type Status Severity Reaction(s) Onset Date Inactive Date Treating Clinician Comments Source NO KNOWN ALLERGIE S Drug Class Active [facility] Social History Social Habit Start Date Stop Date Quantity Comments Source [facility] intake 2023-07-11 00:00:00 2023-07-11 00:00:00 Current non-drinker of alcohol (finding) [facility] History of Social function 2023-07-11 00:00:00 2023-07-11 00:00:00 [facility] Tobacco use and exposure 2013-01-21 00:00:00 2013-01-21 00:00:00 Smokeless tobacco non-user [facility] Sex Assigned At 1995 00:00:00 1995 00:00:00 [facility] Smoking Status Start Date Stop Date Source Never smoked tobacco [facility] Medications Ordered Medication Name Filled Medication Name Start Date Stop Date Current Medication? Ordering Clinician Indication Dosage Frequency Signature (SIG) Comments Components Source cefTRIAXone (ROCEPHIN) 1,000 mg in NaCl 0.9% (NS) 100 mL MINI-BAG 2022-09 22:00: 00 07-11 22:39 :00 No [id number] 07 1000mg 1,000 mg, IV Piggyback, ONCE, 1 dose, On Shereen 07/11/23 at 1700, Administer over 30 Minutes, 100 mL
Reas on for Anti-Infec tive: Documented Infection< br>Documen raul Infection Site: HEENT
D uration of Therapy: 7 days [facility] dexamethaso ne sod phos PF injection 10 mg 2022-09 21:15: 00 07-11 21:46 :00 No [id number] 07 10mg 10 mg, Slow IV Push, ONCE, 1 dose, On [facility] 07/11/23 at 1615, 1 mL [facility] ketorolac (TORADOL) injection 15 mg 2022-09 20:00: 00 07-11 19:35 :00 No [id number] 15mg 15 mg, Slow IV Push, ONCE, 1 dose, On Shereen 07/11/23 at 1500, RANI [facility] iopamidol (ISOVUE 370-500 mL) injection 90 mL 2022-09 19:45: 00 07-11 20:00 :00 No [id number] 90mL 90 mL, Intravenou s, ONCE, 1 dose, On [facility] 07/11/23 at 1500, Routine [facility] promethazin e-dextromet horphan 6.25-15 mg/5 mL syrup 3-27 00:00: 00 Yes [id number] 5mL Take 5 mL by mouth 4 (four) times daily as needed for Cough. [facility] vit 33-iron-fol ic-dha (SELECT-OB + DHA) 29 mg iron-1 mg -250 mg combo pack 12-23 00:00: 00 Yes 1{packe t} Take 1 Packet by mouth daily. [facility] Immunizations Ordered Immunization Name Filled Immunization Name Date Status Comments Source TD, NOS Unknown Completed [facility] Rubella Unknown Completed [facility] Varicella (varivax)(chicken pox) Unknown Completed [facility] Vital Signs Vital Name Observation Time Observation Value Comments Janelle villegas Systolic blood pressure 2023-07-11 22:42:00 131 mm[Hg] [facility] Diastolic blood pressure 2023-07-11 22:42:00 72 mm[Hg] [facility] Heart rate 2023-07-11 22:42:00 80 /min [facility] Body temperature 2023-07-11 22:42:00 36.94 Ashlyn [facility] Respiratory rate 2023-07-11 22:42:00 21 /min [facility] Oxygen saturation in Arterial blood by Pulse oximetry 2023-07-11 22:42:00 98 /min [facility] Body height 2023-07-11 18:58:00 160 cm [facility] Body weight 2023-07-11 18:58:00 101.606 kg [facility] BMI 2023-07-11 18:58:00 39.68 kg/m2 [facility] Procedures Procedure Date / Time Performed Performing Clinicia n Source CT MAXILLOFACIAL/MANDIBLE W CONTRAST 2023-07-11 19:55:14 Sol Chaves [facility] POCT TEST 2023-07-11 19:35:00 Sol Chaves [facility] COMP. METABOLIC PANEL (82990) 2023-07-11 19:34:00 Sol Chaves [facility] CBC WITH DIFF 2023-07-11 19:34:00 Sol Pierre [facility] URINALYSIS 2023-07-11 19:31:00 Sol Pierre [facility] CONSENT/REFUSAL FOR DIAGNOSIS AND TREATMENT 2023-07-11 18:52:39 Doctor Unassigned, [place] [facility] Encounters Start Date/Time End Date/Time Encounter Type Admission Type Attending Clinicians Care Facility Care Department Encounter ID Source 2023-11-21 10:00:00 2023-11-21 10:00:00 Outpatient WARREN SALDIVAR [facility] [id number] [facility] 2023-11-05 10:00:00 2023-11-05 10:00:00 Outpatient WARREN SALDIVAR [facility] [id number] [facility] 2023-07-11 13:59:00 2023-07-11 17:51:00 Emergency Sol Chaves [facility] [id number] [facility] 2023-07-11 13:59:00 2023-07-11 17:51:00 Emergency X SOL CHAVES EUNICE [facility] [[email or web address]] ERT [id number] [facility] 2022-06-27 10:12:53 2022-06-27 10:12:53 Outpatient [facility] [id number] [place] 2020-02-08 15:30:00 2020-02-08 15:30:00 Outpatient R ERICKA PHAM [facility] [id number] [facility] 2020-02-03 00:00:00 2020-02-03 00:00:00 Telephone Ericka Pham [facility] [[email or web address]] [facility] [id number] 2019-12-18 19:45:00 2019-12-18 19:45:00 Outpatient R [facility] [id number] [facility] 2019-12-18 19:45:00 2019-12-18 19:45:00 Outpatient R [facility] [id number] [facility] Results Test Description Test Time Test Comments Results Result Co mments Source [facility] WITH [id number] 20:53:52* Test Item Value Reference Range Interpretation Comme nts WBC (test code = 6690-2) 10.46 See_Comment [Automated messa ge] The system which generated this result transmitted reference range: 4.30 - 11.10 10*3/?L. The reference range was not used to interpret this result as normal/abnormal. RBC (test code = 789-8) 5.11 See_Comment [Automated messa ge] The system which generated this result transmitted reference range: 3.93 - 5.25 10*6/?L. The reference range was not used to interpret this result as normal/abnormal. HGB (test code = 718-7) 12.8 g/dL 11.6-15.0 HCT (test code = 4544-3) 40.4 % 35.7-45.2 MCV (test code = 787-2) 79.1 fL 80.6-95.5 L MCH (test code = 785-6) 25.0 pg 25.9-32.8 L MCHC (test code = 786-4) 31.7 g/dL 31.6-35.1 RDW-SD (test code = 64061-5) 40.8 fL 39.0-49.9 RDW-CV (test code = 788-0) 14.3 % 12.0-15.5 PLT (test code = 777-3) 279 See_Comment [Automated messa ge] The system which generated this result transmitted reference range: 166 - 358 10*3/?L. The reference range was not used to interpret this result as normal/abnormal. MPV (test code = 76140-2) 10.0 fL 9.5-12.9 NRBC/100 WBC (test code = 1891186545) 0.0 See_Comment [Automated [employer] ssage] The system which generated this result transmitted reference range: 0.0 - 10.0 /100 WBCs. The reference range was not used to interpret this result as normal/abnormal. NRBC x10^3 (test code = 4001112446) See_Comment [Automated messa ge] The system which generated this result transmitted reference range: 10*3/?L. The reference range was not used to interpret this result as normal/abnormal. GRAN MAT (NEUT) % (test code = 770-8) 63.0 % IMM GRAN % (test code = 4607318954) 0.50 % LYMPH % (test code = 736-9) 26.1 % MONO % (test code = 5905-5) 5.8 % EOS % (test code = 713-8) 4.3 % BASO % (test code = 706-2) 0.3 % GRAN MAT x10^3(ANC) (test code = 7314526597) 6.59 10*3/uL 1.88-7.09 IMM GRAN x10^3 (test code = 0582658145) 0.05 10*3/uL 0.00-0.06 LYMPH x10^3 (test code = 731-0) 2.73 10*3/uL 1.32-3.29 MONO x10^3 (test code = 742-7) 0.61 10*3/uL 0.33-0.92 EOS x10^3 (test code = 711-2) 0.45 10*3/uL 0.03-0.39 H BASO x10^3 (test code = 704-7) 0.03 10*3/uL 0.01-0.07 Lab Interpretation (test code = 29487-4) Abnormal [facility] [id number] 19:35:00* Test Item Value Reference Range Interpretation Comme [facility] POCT PREG (test code = 1605) Negative On board controls acceptable with C Line (test code = 3574) Yes POCT PREG LOT # (test code = 3575) [id number] POCT PREG TEST DATE ( test code = 3576) 09-25-2024 Lab Interpretation (test cod e = 37284-6) Normal [facility]IRD [id number] 06:46:44* Test Item Value Reference Range Interpretation Comme [facility] TSH, THIRD GENERATION (test code = 2821) 0.929 UIU/ML 0.400-4.100 HEMOGLOBIN [id number] 06:03:59* Test Item Value Reference Range Interpretation Comme [facility] HEMOGLOBIN A1c (test code = 55961) 6.8 % 4.2-5.6 H [employer] GUIDELINES FOR HGB A1C: PREDIABETES/INCREASED RISK . . . . . . . 5.7-6.4% DIAGNOSIS OF DIABETES . . . . . . . . . >=6.5% WITH CONFIRMATION OR APPROPRIATE SYMPTOMS NOTE: ASSAY MAY BE AFFECTED BY HEMOGLOBINOPATHIES (SICKLE CELL ANEMIA, S-C DISEASE, OTHERS) OR ARTIFICIALLY LOWERED BY DECREASED RED CELL SURVIVAL (HEMOLYTIC ANEMIAS, BLOOD LOSS, ETC.). CONSIDER ALTERNATE TESTING OR LABORATORY CONSULTATION. LIPID [id number] 03:29:16* Test Item Value Reference Range Interpretation Comme nts CHOLESTEROL (test code = 2210) 214 MG/DL <200 H TRIGLYCERIDES (test code = 2232) 112 MG/DL <150 HDL CHOLESTEROL (test code = 2220) 41 MG/DL >39 CALC LDL CHOL (test code = 2237) 150 MG/DL <100 H NOTE: CALCULATED LDL IS BASED ON CHARLENE-RIVERA METHOD WHICHINCLUDES ADJUSTABLE TRIGLYCERIDE:VLDL CHOLESTEROL RATIO.THIS FACTOR VARIES BY MEASURED TRIGLYCERIDE AND NON-HDLCHOLESTEROL CONCENTRATIONS WITH INCREASED CALCULATED LDL SEENIN HIGHER TRIGLYCERIDE OR LOWER NON-HDL SPECIMENS. FOR MOREINFORMATION, SEE CLIENT ANNOUNCEMENT AT [email or web address] RISK RATIO LDL/HDL (test code = 2238) 3.66 RATIO <3.22 H UNLESS OTHERW ISE INDICATED, ALL TESTING PERFORMED [facility] [address] [place] [id number] AUTO MECHANIC SUPERVISOR: TIFFANY COOL M.D. CLIA NUMBER [id number] [facility]. [id number]
[2024-06-02] MEDS ORDERED: FAMOTIDINE 20 MG/2 ML VIAL IV ONE (19:46)
[2024-06-02] MEDS ORDERED: KETOROLAC 30 MG/ML INJ ONE (19:46)
[2024-06-02 19:54] LABS: Absolute Eosinophils 0.3 K/uL (0-0.5); Absolute Monocytes 0.4 K/uL (0.1-1.3); Absolute Neutrophil 4.1 K/uL (1.8-8.0); Basophils % 0.5 % (0-1.3); Eosinophils % 3.4 % (0-4.4); Hematocrit 41.2 % (36.0-45.0); Hemoglobin 13.3 g/dL (12.0-15.0); Lymphocytes % 38.1 % (15.3-44.8); MCH 25.6 pg (27.0-35.0); MCHC 32.3 g/dL (32.0-36.0); MCV 79.2 fL (80-100); Monocytes % 5.3 % (3.3-12.3); Neutrophils % 52.7 % (41.7-73.7); Platelets 265 thou/uL (152-406); Red Cell Distribution Width 13.9 % (12.1-15.2)
[2024-06-02 20:17] LABS: Anion Gap 9.5 mEq/L (5.0-15.0); BUN Blood Urea Nitrogen 16 mg/dL (7-18); Bicarbonate 26 mEq/L (21-32); Glomerular Filtration Rate 103 ml/min (=/>90); Glucose Level 157 mg/dL (74-106); Potassium 3.5 mEq/L (3.5-5.1); Sodium Level 137 mEq/L (136-145)
[2024-06-02 20:37] LABS: Troponin High Sensitivity < 3.0 pg/mL (<58.9)
--- NOTE | 2024-06-02 20:37 | RAD REPORT ---
EXAM DESCRIPTION: RAD - Chest Single View - 06/02/2024 8:28 pm CLINICAL HISTORY: CHEST PAIN Chest pain. COMPARISON: Chest Pa And Lat (2 Views) dated 02/13/2024; Chest Single View dated 06/25/2022 FINDINGS: Portable technique limits examination quality. The lungs are grossly clear. The heart is normal in size. No displaced fractures. IMPRESSION: No acute intrathoracic process suspected.
--- NOTE | 2024-06-02 22:16 | ER ---
Nurse's Notes [facility] Name: Amy Rey Age: 29 yrs Sex: Female : 1995 Arrival Date: 06/02/2024 Time: 19:10 Bed 20 Private MD: Diagnosis: Chest pain, unspecified Presentation: 06/02 19:36 Chief complaint: Patient states: epigastric pain, heartburn, and nausea that started cp4 today. Coronavirus screen: Client denies travel out of the [place] in the last 14 days. At this time, the client does not indicate any symptoms associated with coronavirus-19. Ebola Screen: Patient negative for fever greater than or equal to 101.5 degrees Fahrenheit, and additional compatible Ebola Virus Disease symptoms Patient denies exposure to infectious person. Patient denies travel to an Ebola-affected area in the 21 days before illness onset. No symptoms or risks identified at this time. Initial Sepsis Screen: Does the patient meet any 2 criteria? No. Patient's initial sepsis screen is negative. Does the patient have a suspected source of infection? No. Patient's initial sepsis screen is negative. Risk Assessment: Do you want to hurt yourself or someone else? Patient reports no desire to harm self or others. Onset of symptoms was June 02, 2024. 19:36 Method Of Arrival: Ambulatory cp4 19:36 Acuity: TARAH 3 cp4 Triage Assessment: 19:37 General: Appears in no apparent distress. uncomfortable, Behavior is calm, cooperative, cp4 appropriate for age. Pain: Complains of pain in chest Pain does not radiate. Pain currently is 10 out of 10 on a pain scale. EENT: No signs and/or symptoms were reported regarding the EENT system. Neuro: Level of Consciousness is awake, alert, obeys commands, Oriented to person, place, time, situation. Cardiovascular: Reports chest pain, nausea. Respiratory: Airway is patent Respiratory effort is even, unlabored. GI: Reports nausea. : No signs and/or symptoms were reported regarding the genitourinary system. Derm: No signs and/or symptoms reported regarding the dermatologic system. Musculoskeletal: No signs and/or symptoms reported regarding the musculoskeletal system. 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 - Infectious Disease History:: Denies. - Social history:: Smoking status: Patient denies any tobacco usage or history of. Screenin:38 [facility] ED Fall Risk Assessment (Adult) History of falling in the last 3 months, cp4 including since admission No falls in past 3 months (0 pts) Confusion or Disorientation No (0 pts) Intoxicated or Sedated No (0 pts) Impaired Gait No (0 pts) Mobility Assist Device Used No (0 pt) Altered Elimination No (0 pt) Score/Fall Risk Level 0 - 2 = Low Risk Oriented to surroundings, Maintained a safe environment, Assessed \T\ reinforced patient's understanding of fall precautions, Hourly rounding (assess needs \T\ fall precautionary measures) done. Abuse screen: Denies threats or abuse. Nutritional screening: No deficits noted. Tuberculosis screening: No symptoms or risk factors identified. Assessment: 19:38 Reassessment: No changes from previously documented assessment. Pain: Pain began cp4 gradually. Vital Signs: 19:41 BP 144 / 71; Pulse 91; Resp 17; Temp 98.2; Pulse Ox 98% ; cp4 21:00 BP 125 / 93; Pulse 80; Resp 18; Pulse Ox 98% ; cp4 22:00 BP 140 / 96; Pulse 84; Resp 18; Pulse Ox 98% ; cp4 ED Course: 19:14 Patient arrived in ED. ra3 19:28 sEtefany Rico FNP-C is PHCP. kb 19:28 Itz Nolasco MD is Attending Physician. kb 19:35 Frances Vasquez is Primary Nurse. cp4 19:37 Triage completed. cp4 19:37 Arm band placed on right wrist. Patient placed in waiting room. cp4 19:38 Bed in low position. Call light in reach. Side rails up X 1. Client placed on cp4 continuous cardiac and pulse oximetry monitoring. NIBP monitoring applied. color television console monitor on. Pulse ox on. NIBP on. 19:38 No provider procedures requiring assistance completed. Inserted saline lock: 20 gauge cp4 in right antecubital area, using aseptic technique. Blood collected. Flushed with 10 mL NS. Patient maintains SpO2 saturation greater than 95% on room air. 19:42 Basic Metabolic Panel Sent. cp4 19:42 CBC with Diff Sent. cp4 19:42 D-Dimer Sent. cp4 19:42 Troponin HS Sent. cp4 19:49 EKG done, by ED staff. bc6 20:30 XRAY Chest (1 view) In Process Unspecified. EDMS 22:35 Provided Education on: chest pain, acid reflux. cp4 22:35 intact, bleeding controlled, No redness/swelling at site. Pressure dressing applied. cp4 Administered Medications: 19:55 Drug: Ketorolac IVP 15 mg IVP once Route: IVP; Site: right antecubital; cp4 20:20 Follow up: Response: No adverse reaction; Pain is decreased cp4 19:55 Drug: Famotidine IVP 20 mg IVP once; dilute with 10 mL 0.9% NaCl; give over 2 minutes cp4 Route: IVP; Site: right antecubital; 20:20 Follow up: Response: No adverse reaction cp4 22:34 Drug: GI Cocktail without - (Maalox PO 30 ml, Lidocaine Mucous Membrane 2 % 15 cp4 ml) PO once Route: PO; 22:34 Follow up: Response: No adverse reaction cp4 Medication: 19:38 VIS not applicable for this client. cp4 Outcome: 22:15 Discharge ordered by . kb 22:35 Discharged to home ambulatory, cp4 22:35 Condition: stable 22:35 Discharge instructions given to patient, Instructed on discharge instructions, follow up and referral plans. Demonstrated understanding of instructions, follow-up care, 22:36 Patient left the ED. cp4 Signatures: Dispatcher [employer] EDMS Estefany Rico, [employer] SUSPENSION COORDINATORLora Han bc6 Frances Vasquez cp4 Kamini Conklin ra3
--- NOTE | 2024-06-02 22:16 | EDPHYS ---
Physician Documentation [facility] Name: Amy Rey Age: 29 yrs Sex: Female : 1995 Arrival Date: 06/02/2024 Time: 19:10 Bed 20 Private MD: ED Physician Itz Nolasco HPI: 06/02 22:38 This 29 yrs old Female presents to ER via Ambulatory with complaints of Chest kb Pressure, Chest Pain. 22:38 Pt is a 29 year old female who presents with chest pain that started yesterday. states kb it resolves for a few minutes after maalox, but returns. Denies abd pain, nausea, vomiting. Reports pain is worse with palpation of chest. 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 - Infectious Disease History:: Denies. - Social history:: Smoking status: Patient denies any tobacco usage or history of. ROS: 22:15 Constitutional: As per HPI kb Exam: 22:03 Constitutional: This is a well developed, well nourished patient who is awake, alert, kb and in no acute distress. Head/Face: Normocephalic, atraumatic. ENT: Moist Mucous membranes Cardiovascular: Regular rate Respiratory: Respirations even and unlabored. No increased work of breathing. Talking in full sentences Abdomen/GI: Soft, non-tender. No distention Skin: Warm, dry with normal turgor. Normal color. MS/ Extremity: Pulses equal, no cyanosis. Neurovascular intact. Full, normal range of motion. Neuro: Awake and alert, GCS 15, oriented to person, place, time, and situation. Moves all extremities. Normal gait. 22:03 Chest/axilla: Inspection: normal, Palpation: tenderness, 22:03 ECG was reviewed by the Attending Physician. Vital Signs: 19:41 BP 144 / 71; Pulse 91; Resp 17; Temp 98.2; Pulse Ox 98% ; cp4 21:00 BP 125 / 93; Pulse 80; Resp 18; Pulse Ox 98% ; cp4 22:00 BP 140 / 96; Pulse 84; Resp 18; Pulse Ox 98% ; cp4 MDM: 19:31 Patient medically screened. kb 22:37 Differential diagnosis: chest wall pain, [place], arrhythmia, PE, GERD. Data reviewed: vital kb signs, nurses notes. Test considered but Not performed: CT: CT Chest considered but d-dimer negative. Counseling: I had a detailed discussion with the patient and/or guardian regarding the historical points, exam findings, and any diagnostic results supporting the discharge/admit diagnosis, lab results, radiology results, the need for outpatient follow up, a family practitioner, to return to the emergency department if symptoms worsen or persist or if there are any questions or concerns that arise at home. 06/02 19:31 Order name: Basic Metabolic Panel; Complete Time: 20:38 kb 06/02 19:31 Order name: CBC with Diff; Complete Time: 20:00 kb 06/02 19:31 Order name: D-Dimer; Complete Time: 20:14 kb 06/02 19:31 Order name: Troponin HS; Complete Time: 20:38 kb 06/02 19:31 Order name: XRAY Chest (1 view); Complete Time: 20:38 kb 06/02 19:31 Order name: EKG; Complete Time: 19:32 kb 06/02 19:31 Order name: Cardiac monitoring; Complete Time: 19:41 kb 06/02 19:31 Order name: EKG - Nurse/Tech; Complete Time: 19:41 kb 06/02 19:31 Order name: IV Saline Lock; Complete Time: 19:41 kb 06/02 19:31 Order name: Labs collected and sent; Complete Time: 19:41 kb 06/02 19:31 Order name: O2 Per Protocol; Complete Time: 19:42 kb 06/02 19:31 Order name: O2 Sat Monitoring; Complete Time: 19:42 kb EC:03 Rate is 98 beats/min. Rhythm is regular. QRS Mcdonald is Normal. SD interval is normal at kb 158 msec. QRS interval is normal at 80 msec. QT interval is normal at 451 msec. Administered Medications: 19:55 Drug: Ketorolac IVP 15 mg IVP once Route: IVP; Site: right antecubital; cp4 20:20 Follow up: Response: No adverse reaction; Pain is decreased cp4 19:55 Drug: Famotidine IVP 20 mg IVP once; dilute with 10 mL 0.9% NaCl; give over 2 minutes cp4 Route: IVP; Site: right antecubital; 20:20 Follow up: Response: No adverse reaction cp4 22:34 Drug: GI Cocktail without - (Maalox PO 30 ml, Lidocaine Mucous Membrane 2 % 15 cp4 ml) PO once Route: PO; 22:34 Follow up: Response: No adverse reaction cp4 Disposition Summary: 06/02/24 22:15 Discharge Ordered Notes: Location: Home kb Condition: Stable kb Diagnosis - Chest pain, unspecified kb Followup: kb - With: Emergency Department - When: As needed - Reason: Worsening of condition Followup: kb - With: Private Physician - When: 2 - 3 days - Reason: Recheck today's complaints, Continuance of care, Re-evaluation by your physician Discharge Instructions: - Discharge Summary Sheet kb - Nonspecific Chest Pain, Adult, [id number] kb Forms: - Medication Reconciliation Form kb - Antibiotic Education kb - Prescription Opioid Use kb - Patient Portal Instructions kb - Leadership Thank You Letter kb Addendum: 06/06/2024 15:49 Co-signature as Attending Physician, Itz Nolasco MD I agree with the assessment and c perry plan of care. Signatures: Dispatcher [employer] Estefany Peterson, MELANI-C B[employer] M[employer] OPERATOR FOR [employer]-Itz Chiu MD MD cha Potter, Christina cp4
[2024-06-02] MEDS ORDERED: LIDOCAINE VISCOUS 2% 10ML ORAL SOLN ONE (22:22)
[2024-06-02] MEDS ORDERED: MAGNES/ALUMIN/SIMET 30ML UCUP ONE (22:22)
[2024-06-02 23:11] VITALS: TEMP 98.2; O2SAT 98
[2024-06-02 23:13] VITALS: BP 140/96
--- NOTE | 2024-06-04 16:27 | EKG ---
Test Date: 2024-06-02 Test Time: 19:30:56 Signaling Project Engineer: CLIFFORD MEASUREMENT RESULTS: Intervals: Rate: 98 TN: 158 QRSD: 80 QT: 354 QTc: 451 Concepcion: P: 48 TN: 158 QRS: 48 T: 38 INTERPRETIVE STATEMENTS: Normal sinus rhythm Cannot rule out Anterior infarct, age undetermined Abnormal ECG Compared to ECG 02/13/2024 15:51:01 Myocardial infarct finding now present Electronically Signed On 06-04-24 16:23:06 CDT by Austin Bey
== END 2024-06-02 22:36 | disposition home or self-care (01) ==
LOC: ER 19:10
DX: R07.89 Other chest pain (principal)
CPT/HCPCS: 36415; 71045; 80048; 84484; 85025; 85379; 93005; 96374; 96375; 99285

== ENCOUNTER 2024-10-02 17:43 | Emergency (ER) | payer SELFPAY ==
--- OUTSIDE RECORDS SUMMARY | 2024-10-02 17:46 | XMS REPORT | Continuity of Care Document ---
Author Name Unknown Address [address] [place] [address] [facility] thconnect Address [address] [place] [address] Care Team Providers Care Advice Line Rn Name Role Phone Pcp, Patient Does Not Have A Primary Care Physic sigrid YOCASTA ZAPIEN Attending Clinician UnavailYOCASTA Broderick Attending Clinician Yocasta More DO Attending Clinician WARREN RAZA Attending Clinician Unavailable Sol Arnold Attending Clinici an SOL MICHELLE Attending Clinician U ERICKA Yarbrough Attending Clinician Ericka Candelario Attending Clinician [phone] SOL MICHELLE Admitting Clinician U theodore Problems Condition Name Condition Details Condition Category Status Onset Date Resolution Date Last Treatment Date Treating Clinician Comments Source Anemia due to acute blood loss Anemia due to acute blood loss Disease Active 2017-09 00:00: 00 [facility] 39 weeks gestation of 39 weeks gestation of Disease Active 2017-09 00:00: 00 [facility] Liveborn infant by vaginal delivery Liveborn by vaginal delivery Disease Active 2017-09 00:00: 00 [facility] Obesity (BMI 30-39.9) Obesity (BMI 30-39.9) Disease Active 2017-09 00:00: 00 [facility] Decreased movement Decreased movement Disease Active 2017-09 00:00: 00 [facility] 38 weeks gestation of 38 weeks gestation of Disease Active 2017-09 00:00: 00 [facility] Threatened labor at term Threatened labor at term Disease Active 2017-09 00:00: 00 [facility] Supervisio n of high risk , antepartum , first trimester Supervisio n of high risk , antepartum , first trimester Disease Active 12-19 00:00: 00 [facility] Multiparit y Multiparit y Disease Active 12-19 00:00: 00 [facility] History of spontaneou s , currently History of spontaneou s , currently Disease Active 12-19 00:00: 00 [facility] Obesity in Obesity in Disease Active 12-19 00:00: 00 [facility] Absence of menstruati on Absence of menstruati on Disease Active 05 00:00: 00 [facility] High-risk High-risk Disease Resolve d 12-02 00:00: 00 2014-02-14 00:00:00 2014-02-14 20:00:46 [facility] Viral gastroente ritis Viral gastroente ritis Disease Resolve d 0 12 00:00: 00 2014-02-14 00:00:00 2014-02-14 20:00:46 [facility] Complete spontaneou s Complete spontaneou s Disease Resolve d 0 6-24 00:00: 00 2013-12-02 00:00:00 2022-04-08 00:25:10 [facility] Teen Teen Disease Resolve d 705 00:00: 00 2013-05-08 00:00:00 2013-05-08 13:43:49 [facility] Immune to rubella Immune to rubella Disease Resolve d 02-18 00:00: 00 2013-05-08 00:00:00 2013-05-08 13:43:54 [facility] Immune to varicella Immune to varicella Disease Resolve d 02-18 00:00: 00 2013-05-08 00:00:00 2013-05-08 13:43:51 [facility] Abnormal glucose tolerance test Abnormal glucose tolerance test Disease Resolve d 01-23 00:00: 00 2013-03-27 00:00:00 2022-04-08 00:24:20 [facility] Teen Teen Disease Resolve d 01-21 00:00: 00 2013-03-27 00:00:00 2022-04-08 00:24:18 [facility] Allergies, Adverse Reactions, Alerts Allergy Name Allergy Type Status Severity Reaction(s) Onset Date Inactive Date Treating Clinician Comments Source NO KNOWN ALLERGIE S Drug Class Active [facility] Social History Social Habit Start Date Stop Date Quantity Comments Source Sexual [facility] History of Social function 2024-07-12 00:00:00 2024-07-12 00:00:00 [facility] Alcoholic beverage intake 2024-07-12 00:00:00 2024-07-12 00:00:00 Current non-drinker of alcohol (finding) [facility] Alcohol intake 2023-07-11 00:00:00 2023-07-11 00:00:00 Current non-drinker of alcohol (finding) [facility] Tobacco use and exposure 2013-01-21 00:00:00 2013-01-21 00:00:00 Smokeless tobacco non-user [facility] Sex assigned at 1995 00:00:00 1995 00:00:00 [facility] Smoking Status Start Date Stop Date Source Never smoked tobacco [facility] Medications Ordered Medication Name Filled Medication Name Start Date Stop Date Current Medication? Ordering Clinician Indication Dosage Frequency Signature (SIG) Comments Components Source dexamethaso ne sod phos PF injection 10 mg 2023-09 18:45: 00 07-12 18:44 :00 No 10mg 10 mg, Oral, ONCE, 1 dose, On Sat07/12/24 at 1345, 1 mL [facility] cefTRIAXone (ROCEPHIN) 1,000 mg in NaCl 0.9% (NS) 100 mL MINI-BAG 2022-09 22:00: 00 07-11 22:39 :00 No [id number] 1000mg 1,000 mg, IV Piggyback, ONCE, 1 dose, On Shereen 07/11/23 at 1700, Administer over 30 Minutes, 100 mL
Reas on for Anti-Infec tive: Documented Infection< br>Documen raul Infection Site: HEENT
D uration of Therapy: 7 days [facility] dexamethaso ne sod phos PF injection 10 mg 2022-09 21:15: 00 07-11 21:46 :00 No [id number] 10mg 10 mg, Slow IV Push, ONCE, 1 dose, On Shereen 07/11/23 at 1615, 1 mL [facility] ketorolac (TORADOL) injection 15 mg 2022-09 20:00: 00 07-11 19:35 :00 No [id number] 15mg 15 mg, Slow IV Push, ONCE, 1 dose, On [facility] 07/11/23 at 1500, RANI [facility] iopamidol (ISOVUE 370-500 mL) injection 90 mL 2022-09 19:45: 00 07-11 20:00 :00 No [id number] 90mL 90 mL, Intravenou s, ONCE, 1 dose, On [facility] 07/11/23 at 1500, Routine [facility] promethazin e-dextromet horphan 6.25-15 mg/5 mL syrup 12-17 00:00: 00 Yes [id number] 5mL Take 5 mL by mouth 4 (four) times daily as needed for Cough. [facility] vit 33-iron-fol ic-dha (SELECT-OB + DHA) 29 mg iron-1 mg -250 mg combo pack 12-23 00:00: 00 Yes 1{packe t} Take 1 Packet by mouth daily. [facility] Immunizations Ordered Immunization Name Filled Immunization Name Date Status Comments Source Varicella (varivax)(chicken pox) 2013-01-19 00:00:00 Completed Rubella 2012-07-10 00:00:00 Completed TD, NOS 2010-04-23 00:00:00 Completed TD, NOS Unknown Completed [facility] Rubella Unknown Completed [facility] Varicella (varivax)(chicken pox) Unknown Completed [facility] Vital Signs Vital Name Observation Time Observation Value Comments S ource Systolic blood pressure 2024-07-12 18:34:00 147 mm[Hg] [facility] Diastolic blood pressure 2024-07-12 18:34:00 85 mm[Hg] [facility] Heart rate 2024-07-12 18:34:00 100 /min [facility] Body temperature 2024-07-12 18:34:00 36.78 Ashlyn [facility] Respiratory rate 2024-07-12 18:34:00 20 /min [facility] Body height 2024-07-12 18:34:00 160 cm [facility] Body weight 2024-07-12 18:34:00 118.162 kg [facility] BMI 2024-07-12 18:34:00 46.15 kg/m2 [facility] Oxygen saturation in Arterial blood by Pulse oximetry 2024-07-12 18:34:00 100 /min [facility] Systolic blood pressure 2023-07-11 22:42:00 131 mm[Hg] [facility] Diastolic blood pressure 2023-07-11 22:42:00 72 mm[Hg] [facility] Heart rate 2023-07-11 22:42:00 80 /min [facility] Body temperature 2023-07-11 22:42:00 36.94 Ashlyn [facility] Respiratory rate 2023-07-11 22:42:00 21 /min [facility] Oxygen saturation in Arterial blood by Pulse oximetry 2023-07-11 22:42:00 98 /min [place] [facility] Body height 2023-07-11 18:58:00 160 cm [facility] Body weight 2023-07-11 18:58:00 101.606 kg [facility] BMI 2023-07-11 18:58:00 39.68 kg/m2 [facility] Procedures Procedure Date / Time Performed Performing Clinicia n Source CT MAXILLOFACIAL/MANDIBLE W CONTRAST 2023-07-11 19:55:14 Sol Michelle [facility] POCT TEST 2023-07-11 19:35:00 Sol Michelle [facility] COMP. METABOLIC PANEL (48730) 2023-07-11 19:34:00 Sol Michelle [facility] CBC WITH DIFF 2023-07-11 19:34:00 Sol Pierre [facility] URINALYSIS 2023-07-11 19:31:00 Sol Pierre [facility] CONSENT/REFUSAL FOR DIAGNOSIS AND TREATMENT 2023-07-11 18:52:39 Doctor Unassigned, [place] [facility] Encounters Start Date/Time End Date/Time Encounter Type Admission Type Attending Clinicians Care Facility Care Department Encounter ID Source 2024-07-12 13:38:00 2024-07-12 14:00:00 Emergency X YOCASTA ZAPIEN [facility] ERT [id number] [facility] 2024-07-12 13:38:00 2024-07-12 14:00:00 Emergency Yocasta Zapien [facility] TO [facility] [id number] [facility] 2023-11-21 10:00:00 2023-11-21 10:00:00 Outpatient WARREN SALDIVAR [facility] [id number] [facility] 2023-11-05 10:00:00 2023-11-05 10:00:00 Outpatient WARREN SALDIVAR [facility] [id number] [facility] 2023-07-11 13:59:00 2023-07-11 17:51:00 Emergency Sol MichelleSimin [facility] [id number] [facility] 2023-07-11 13:59:00 2023-07-11 17:51:00 Emergency X SOL MICHELLE SEVERO SOL [facility] ERT [id number] [facility] 2022-06-27 10:12:53 2022-06-27 10:12:[address] [facility] [id number] Pipo Carroll Karthik 2020-02-08 15:30:00 2020-02-08 15:30:00 Outpatient ERICKA AVALOS [facility] [id number] [facility] 2020-02-03 00:00:00 2020-02-03 00:00:00 Telephone Ericka Pham [facility] [id number] 2019-12-18 19:45:00 2019-12-18 19:45:00 Outpatient R [facility] [id number] [facility] 2019-12-18 19:45:00 2019-12-18 19:45:00 Outpatient R [facility] [id number] [facility] Results Test Description Test Time Test Comments Results Result Co mments Source [facility] WITH [id number] 20:53:52* Test Item Value Reference Range Interpretation [...] 31.7 g/dL 31.6-35.1 RDW-SD (test code = 78509-6) 40.8 fL 39.0-49.9 RDW-CV (test code = 788-0) 14.3 % 12.0-15.5 PLT (test code = 777-3) 279 See_Comment [Automated messa ge] The system which generated this result transmitted reference range: 166 - 358 10*3/?L. The reference range was not used to interpret this result as normal/abnormal. MPV (test code = 48622-8) 10.0 fL 9.5-12.9 NRBC/100 WBC (test code = 4568583399) 0.0 See_Comment [Automated [employer] ssage] The system which generated this result transmitted reference range: 0.0 - 10.0 /100 WBCs. The reference range was not used to interpret this result as normal/abnormal. NRBC x10^3 (test code = 8901461314) See_Comment [Automated messa ge] The system which generated this result transmitted reference range: 10*3/?L. The reference range was not used to interpret this result as normal/abnormal. GRAN MAT (NEUT) % (test code = 770-8) 63.0 % IMM GRAN % (test code = 8790760329) 0.50 % LYMPH % (test code = 736-9) 26.1 % MONO % (test code = 5905-5) 5.8 % EOS % (test code = 713-8) 4.3 % BASO % (test code = 706-2) 0.3 % GRAN MAT x10^3(ANC) (test code = 2814745483) 6.59 10*3/uL 1.88-7.09 IMM GRAN x10^3 (test code = 3099145123) 0.05 10*3/uL 0.00-0.06 LYMPH x10^3 (test code = 731-0) 2.73 10*3/uL 1.32-3.29 MONO x10^3 (test code = 742-7) 0.61 10*3/uL 0.33-0.92 EOS x10^3 (test code = 711-2) 0.45 10*3/uL 0.03-0.39 H BASO x10^3 (test code = 704-7) 0.03 10*3/uL 0.01-0.07 Lab Interpretation (test code = 20479-1) [id number] 19:35:00* Test Item Value Reference Range Interpretation Comme [facility] POCT PREG (test code = 1605) Negative On board controls acceptable with C Line (test code = 3574) Yes POCT PREG LOT # (test code = 3575) [id number] POCT PREG TEST DATE ( test code = 3576) 09-25-2024 Lab Interpretation (test cod e = 09239-2) Normal [facility], THIRD [id number] 06:46:44* Test Item Value Reference Range Interpretation Comme [facility] TSH, THIRD GENERATION (test code = 2821) 0.929 UIU/ML 0.400-4.100 HEMOGLOBIN [id number] 06:03:59* Test Item Value Reference Range Interpretation Comme [facility] HEMOGLOBIN A1c (test code = 58048) 6.8 % 4.2-5.6 H [employer] GUIDELINES FOR HGB A1C: [...] CONSIDER ALTERNATE TESTING OR LABORATORY CONSULTATION. LIPID [id number] 03:29:16* Test Item Value Reference Range Interpretation [...] SPECIMENS. FOR MOREINFORMATION, SEE CLIENT ANNOUNCEMENT AT [email or web address] RISK RATIO LDL/HDL (test code = 2238) 3.66 RATIO <3.22 H UNLESS OTHERW ISE INDICATED, ALL TESTING PERFORMED [facility] [address] [place] [id number] OFFICE COORDINATOR RECEPTIONIST: TIFFANY COOL M.D. CLIA NUMBER [id number] [facility] [place]. [id number]
[2024-10-02] MEDS ORDERED: ONDANSETRON 4 MG/2 ML VIAL ONE (19:00)
[2024-10-02] MEDS ORDERED: NA CHLORIDE 0.9% 1,000 ML ONE (19:00)
[2024-10-02 19:06] LABS: Absolute Eosinophils 0.2 K/uL (0-0.5); Absolute Lymphocytes (CBC) 3.4 K/uL (0.7-4.9); Absolute Monocytes 0.5 K/uL (0.1-1.3); Absolute Neutrophil 5.8 K/uL (1.8-8.0); Basophils % 0.2 % (0-1.3); Eosinophils % 1.5 % (0-4.4); Hematocrit 42.5 % (36.0-45.0); Hemoglobin 13.9 g/dL (12.0-15.0); Lymphocytes % 34.8 % (15.3-44.8); MCH 25.7 pg (27.0-35.0); MCHC 32.6 g/dL (32.0-36.0); MCV 78.8 fL (80-100); MPV 7.8 fL (7.6-11.3); Neutrophils % 58.5 % (41.7-73.7); Nucleated Red Blood Cells % 0.2 % (0-0); Platelets 275 thou/uL (152-406); RBC Red Blood Cell Count 5.39 M/uL (3.86-4.86); Red Cell Distribution Width 13.5 % (12.1-15.2)
[2024-10-02 19:12] LABS: Specific Gravity 1.008 (1.005-1.030)
[2024-10-02 19:14] LABS: Specific Gravity 1.008 (1.005-1.030); Sqamous Epithelial <5 /HPF (None Seen); Urine Bacteria <20 /HPF (<20); Urine Bilirubin NEGATIVE (Negative); Urine Blood 2+ (Negative); Urine Clarity Turbid (Clear); Urine Color Colorless (Yellow); Urine Culture Reflex Order NOT NEEDED; Urine Glucose NEGATIVE (Negative); Urine Ketones NEGATIVE (Negative); Urine Microscopic Reflex YN ORDER UMIC; Urine Mucus Slight /HPF (None Seen); Urine Nitrite NEGATIVE (Negative); Urine Protein NEGATIVE (Negative); Urine RBC <5 /HPF (None Seen); Urine Urobilinogen Normal (Normal); Urine WBC <5 /HPF (<5); Urine WBC Clump Rare /HPF (None Seen); Urine Yeast (Budding) Trace /HPF (None Seen)
[2024-10-02 19:22] LABS: Albumin 3.4 g/dL (3.4-5.0); Albumin/Globulin Ratio 0.7 (1.1-1.8); Anion Gap 8.6 mEq/L (5.0-15.0); Bilirubin Total 0.4 mg/dL (0.2-1.0); Globulin 4.7 g/dL (2.3-3.5); Potassium 3.6 mEq/L (3.5-5.1); Protein, Total 8.1 g/dL (6.4-8.2)
[2024-10-02 19:39] LABS: SARS-CoV-2 Antigen CONTROL BLUE LINE VIS/BG OK; SARS-CoV-2 Antigen Rapid Res Negative (Negative)
[2024-10-02] MEDS ORDERED: AMOX/K CLAV 875 MG TAB ONE (20:17)
--- NOTE | 2024-10-02 20:20 | EDPHYS ---
Physician Documentation [facility] Name: Amy Rey Age: 29 yrs Sex: Female : 1995 Arrival Date: 10/02/2024 Time: 17:43 Bed 13 Private MD: ED Physician Erwin Byers HPI: 10/02 19:12 This 29 yrs old Female presents to ER via Ambulatory with complaints of High kb Blood Sugar. 19:12 Pt is a 29 year old female who presents for malaise and high blood sugar. Pt states she kb hasn't felt good since last night and her sugar has been high all day, up to 248. Reports sore throat, right ear pain and dry cough for 2 days as well. States she has had nausea today. Denies vomiting, diarrhea, abd pain. [employer]ILRO[employer] MECH[employer]IC: 20:39 Not kj2 Historical: - Allergies: 18:08 citrus; ll1 18:08 Jake leches; ll1 - PMHx: 18:08 Diabetes - IDDM; polycystic ovarian syndome; ll1 - PSHx: 18:08 hernia repair; ll1 - Immunization history:: Adult Immunizations up to date. - Infectious Disease History:: Denies. - Social history:: Smoking status: Patient denies any tobacco usage or history of. ROS: 19:11 Constitutional: As per HPI kb Exam: 19:11 Constitutional: This is a well developed, well nourished patient who is awake, alert, kb and in no acute distress. Head/Face: Normocephalic, atraumatic. ENT: Moist Mucous membranes Cardiovascular: Regular rate Respiratory: Respirations even and unlabored. No increased work of breathing. Talking in full sentences Abdomen/GI: Soft, non-tender. No distention Skin: Warm, dry with normal turgor. Normal color. MS/ Extremity: Pulses equal, no cyanosis. Neurovascular intact. Full, normal range of motion. Neuro: Awake and alert, GCS 15, oriented to person, place, time, and situation. 19:11 ENT: External ear(s): are unremarkable, Ear canal(s): are normal, TM's: are normal, Posterior pharynx: swelling, that is mild, erythema, that is mild, exudate, that is mild, Vital Signs: 18:08 BP 156 / 97; Pulse 81; Resp 17; Pulse Ox 98% on R/A; Weight 102.06 kg; Height 5 ft. 3 ll1 in. ; 18:55 BP 141 / 90; Pulse 81; Resp 18 S; Pulse Ox 98% on R/A; aa5 19:25 BP 130 / 84; Pulse 81; Resp 20; Pulse Ox 100% on R/A; kj2 20:37 BP 126 / 72; Pulse 78; Resp 18; Temp 98; Pulse Ox 100% on R/A; kj2 18:08 Body Mass Index 39.86 (102.06 kg, 160.02 cm) ll1 MDM: 17:48 Medical Screening Exam initiated kb 20:18 Differential diagnosis: DKA, hyperglycemia, flu, covid, strep. Data reviewed: vital kb signs, nurses notes. Counseling: I had a detailed discussion with the patient and/or guardian regarding the historical points, exam findings, and any diagnostic results supporting the discharge/admit diagnosis, lab results, the need for outpatient follow up, a family practitioner, to return to the emergency department if symptoms worsen or persist or if there are any questions or concerns that arise at home. 10/02 18:10 Order name: Flu; Complete Time: 19:51 kb 10/02 18:10 Order name: SARS-COV-2 Antigen Rapid; Complete Time: 19:40 kb 10/02 18:10 Order name: Strep; Complete Time: 19:40 kb 10/02 18:10 Order name: CBC with Diff; Complete Time: 19:09 kb 10/02 18:10 Order name: CMP; Complete Time: 19:23 kb 10/02 18:10 Order name: Test, Urine; Complete Time: 19:14 kb 10/02 18:10 Order name: Urinalysis w/ reflexes; Complete Time: 19:14 kb 10/02 20:09 Order name: Glucose, Ancillary Testing; Complete Time: 20:18 EDMS 10/02 18:10 Order name: IV Start; Complete Time: 19:04 kb 10/02 19:52 Order name: Blood Glucose Level; Complete Time: 19:58 kb Administered Medications: 19:04 Drug: NS 0.9% IV 1000 ml IV at 1000 ml once; to be given as a bolus over 60 minutes aa5 Route: IV; Rate: 1000 ml; Site: right antecubital; 20:39 Follow up: IV Status: Completed infusion; IV Intake: 1000ml kj2 19:04 Drug: Ondansetron IVP 4 mg IVP once; over 2 minutes Route: IVP; Site: right antecubital;aa5 20:39 Follow up: Response: No adverse reaction kj2 20:21 Drug: Amoxicillin-Clavulanate PO 875 mg PO once Route: PO; kj2 20:21 Follow up: Response: Medication administered at discharge. kj2 Disposition: 20:20 I was immediately available on-site in the Emergency Department for consultation in the ms3 care of the patient. Disposition Summary: 10/02/24 20:19 Discharge Ordered Notes: Location: Home kb Condition: Stable kb Diagnosis - Streptococcal pharyngitis kb - Hyperglycemia, unspecified kb Followup: kb - With: Emergency Department - When: As needed - Reason: Worsening of condition Followup: kb - With: Private Physician - When: 2 - 3 days - Reason: Recheck today's complaints, Continuance of care, Re-evaluation by your physician Discharge Instructions: - Discharge Summary Sheet kb - Strep Throat, Adult, Skkf-be-Mhys kb - Hyperglycemia, Gvyg-wc-[id number] kb Forms: - Medication Reconciliation Form kb - Antibiotic Education kb - Prescription Opioid Use kb - Patient Portal Instructions kb - Leadership Thank You Letter kb Prescriptions: - Augmentin 875-125 mg Oral Tablet - take 1 tablet ORAL route every 12 hours for 10 days; 20 tablet; Refills: 0, kb Product Selection Permitted Signatures: Dispatcher [employer] EDAZ Estefany Rico, MELANI-Sherry SHERMANP-Daria Reynaga, RN RN aa5 Gui Enamorado, RN RN ll1 Erwin Byers DO DO ms3 Li Arango, THO RN kj2 Corrections: (The following items were deleted from the chart) 18:10 18:10 Influenza Screen (A \T\ B)+BA.LAB.BRZ ordered. EDMS EDMS 18:10 18:10 SARS-COV-2 Antigen Rapid+I.LAB.BRZ ordered. EDMS EDMS 18:10 18:10 Group A Streptococcus Rapid Sc+BA.LAB.BRZ ordered. EDMS EDMS 18:10 18:10 CBC+H.LAB.BRZ ordered. EDMS EDMS 18:10 18:10 COMPREHENSIVE METABOLIC PANEL+C.LAB.BRZ ordered. EDMS EDMS 18:10 18:10 Test, Urine+UC.LAB.BRZ ordered. EDMS EDMS 18:10 18:10 Urinalysis+U.LAB.BRZ ordered. EDMS EDMS
--- NOTE | 2024-10-02 20:20 | ER ---
Nurse's Notes [facility] Name: Amy Rey Age: 29 yrs Sex: Female : 1995 Arrival Date: 10/02/2024 Time: 17:43 Bed 13 Private MD: Diagnosis: Streptococcal pharyngitis;Hyperglycemia, unspecified Presentation: 10/02 18:08 Chief complaint: Patient states: Blood sugar higher than normal since last night (up to ll1 248). YOUNG, nausea, sore throat, R ear pain, slight dry cough for 2 days. Coronavirus screen: Client denies travel out of the [place] in the last 14 days. cough unrelated to allergies, fatigue, headache, muscle pain, sore throat, Client presents with at least one sign or symptom that may indicate coronavirus-19. Standard/surgical mask placed on the client. Ebola Screen: Patient denies travel to an Ebola-affected area in the 21 days before illness onset. Initial Sepsis Screen: Does the patient meet any 2 criteria? No. Patient's initial sepsis screen is negative. Does the patient have a suspected source of infection? No. Patient's initial sepsis screen is negative. Risk Assessment: Do you want to hurt yourself or someone else? Patient reports no desire to harm self or others. Onset of symptoms was September 30, 2024. 18:08 Method Of Arrival: Ambulatory ll1 18:08 Acuity: TARAH 3 ll1 Triage Assessment: 18:10 General: Appears uncomfortable, Behavior is calm, cooperative, appropriate for age, ll1 Reports fatigue for. EENT: Reports pain when swallowing. EENT: Reports R ear pain. Neuro: Reports headache weakness. Respiratory: Reports cough that is dry. GI: Reports nausea. 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 - Infectious Disease History:: Denies. - Social history:: Smoking status: Patient denies any tobacco usage or history of. Screenin:16 [facility] ED Fall Risk Assessment (Adult) History of falling in the last 3 months, kj2 including since admission No falls in past 3 months (0 pts) Confusion or Disorientation No (0 pts) Intoxicated or Sedated No (0 pts) Impaired Gait No (0 pts) Mobility Assist Device Used No (0 pt) Altered Elimination No (0 pt) Score/Fall Risk Level 0 - 2 = Low Risk Maintained a safe environment, Hourly rounding (assess needs \\T\\ fall precautionary measures) done. Abuse screen: Denies threats or abuse. Denies injuries from another. Nutritional screening: No deficits noted. Tuberculosis screening: No symptoms or risk factors identified. Assessment: 18:50 General: Appears comfortable, Behavior is calm, cooperative. Pain: Denies pain. Neuro: aa5 Level of Consciousness is awake, alert, obeys commands, Oriented to person, place, time, situation, Reports dizziness, since last night. Cardiovascular: Patient's skin is warm and dry. Respiratory: Airway is patent Respiratory effort is even, unlabored, Respiratory pattern is regular, symmetrical. GI: Abdomen is round Bowel sounds present X 4 quads. Abd is soft and non tender X 4 quads. Reports nausea, Patient currently denies vomiting. : No signs and/or symptoms were reported regarding the genitourinary system. EENT: Reports "scratchy throat" . Derm: Skin is pink, warm \\T\\ dry. Musculoskeletal: Range of motion: intact in all extremities. 19:00 General: Appears in no apparent distress. Behavior is calm, cooperative. Pain: kj2 Complains of pain in throat Pain currently is 4 out of 10 on a pain scale. Neuro: Level of Consciousness is awake, alert, obeys commands, Oriented to person, place, time, situation. Cardiovascular: Patient's skin is warm and dry. Respiratory: Airway is patent Respiratory effort is unlabored. GI: No signs and/or symptoms were reported involving the gastrointestinal system. : No signs and/or symptoms were reported regarding the genitourinary system. 19:25 Reassessment: Patient appears in no apparent distress at this time. Patient and/or kj2 family updated on plan of care and expected duration. Pain level reassessed. Patient is alert, oriented x 3, equal unlabored respirations, skin warm/dry/pink. 20:37 Reassessment: Patient appears in no apparent distress at this time. Patient and/or kj2 family updated on plan of care and expected duration. Pain level reassessed. Patient is alert, oriented x 3, equal unlabored respirations, skin warm/dry/pink. Vital Signs: 18:08 BP 156 / 97; Pulse 81; Resp 17; Pulse Ox 98% on R/A; Weight 102.06 kg; Height 5 ft. 3 ll1 in. ; 18:55 BP 141 / 90; Pulse 81; Resp 18 S; Pulse Ox 98% on R/A; aa5 19:25 BP 130 / 84; Pulse 81; Resp 20; Pulse Ox 100% on R/A; kj2 20:37 BP 126 / 72; Pulse 78; Resp 18; Temp 98; Pulse Ox 100% on R/A; kj2 18:08 Body Mass Index 39.86 (102.06 kg, 160.02 cm) ll1 ED Course: 17:47 Patient arrived in ED. ra3 17:48 Estef[facility] Rico [facility]C [facility] kb 17:48 Erwin Byers DO is Attending Physician. kb 18:08 Arm band placed on Patient placed in an exam room, on a stretcher. ll1 18:10 Triage completed. ll1 18:50 Patient has correct armband on for positive identification. Bed in low position. Call aa5 light in reach. Side rails up X 1. Adult w/ patient. Pulse ox on. NIBP on. 18:58 Initial lab(s) drawn, by me, sent to lab. Inserted saline lock: 20 gauge in right aa5 antecubital area, using aseptic technique. Blood collected. Flushed with 10 mL NS. 19:00 Patient has correct armband on for positive identification. Bed in low position. Call kj2 light in reach. Provided Education on: call light. 19:04 Urine collected: COVID swab sent to lab. Flu and/or RSV swab sent to lab. Strep swab aa5 sent to lab. 19:06 Daria Murillo, RN is Primary Nurse. aa5 19:10 Report given to HTO [place]. aa5 19:17 No provider procedures requiring assistance completed. kj2 20:40 IV discontinued, intact, bleeding controlled, No redness/swelling at site. Pressure kj2 dressing applied. Administered Medications: 19:04 Drug: NS 0.9% IV 1000 ml IV at 1000 ml once; to be given as a bolus over 60 minutes aa5 Route: IV; Rate: 1000 ml; Site: right antecubital; 20:39 Follow up: IV Status: Completed infusion; IV Intake: 1000ml kj2 19:04 Drug: Ondansetron IVP 4 mg IVP once; over 2 minutes Route: IVP; Site: right antecubital;aa5 20:39 Follow up: Response: No adverse reaction kj2 20:21 Drug: Amoxicillin-Clavulanate PO 875 mg PO once Route: PO; kj2 20:21 Follow up: Response: Medication administered at discharge. kj2 Medication: 19:17 VIS not applicable for this client. kj2 Intake: 20:39 IV: 1000ml; Total: 1000ml. kj2 Outcome: 20:19 Discharge ordered by . kb 20:40 Discharged to home ambulatory, with family, kj2 20:40 Condition: stable 20:40 Discharge instructions given to patient, family, Instructed on discharge instructions, follow up and referral plans. Demonstrated understanding of instructions, follow-up care, medications, 20:52 Patient left the ED. kj2 Signatures: Estefany Rico, TAXATION INSPECTOR-C TAXATION INSPECTOR-Daria Reynaga, RN RN aa5 Gui Enamorado RN RN ll1 Kamini Conklin ra3 Li Arango, RN RN kj2
[2024-10-02 21:14] VITALS: O2SAT 100
[2024-10-02 21:16] VITALS: BP 126/72; TEMP 98
== END 2024-10-02 20:52 | disposition home or self-care (01) ==
LOC: ER 17:43
DX: J02.0 Streptococcal pharyngitis (principal); E11.65 Type 2 diabetes mellitus with hyperglycemia
CPT/HCPCS: 36415; 80053; 81001; 81025; 82947; 85025; 87081; 87804; 87811; 96361; 96374; 99284; J2405; J7030

== ENCOUNTER 2025-01-04 23:09 | Emergency (ER) | payer SELFPAY ==
--- OUTSIDE RECORDS SUMMARY | 2025-01-04 23:13 | XMS REPORT | Continuity of Care Document ---
Author Name Unknown Address [address] [facility] [place] [address] [facility] ID Address [address] [facility] 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 Name Role Phone Pcp, Patient Does Not Have A Primary Care Physic sigrid YOCASTA ZAPIEN Attending Clinician UnavailYOCASTA Steele Attending Clinician UnavailYocasta Steele DO Attending Clinician WARREN RAZA Attending Clinician Unavailable Sol Arnold Attending Clinici an SOL MICHELLE Attending Clinician U ERICKA Yarbrough Attending Clinician Ericka Candelario Attending Clinician SOL MICHELLE Admitting Clinician U theodore Problems Condition Name Condition Details Condition Category Status Onset Date Resolution Date Last Treatment Date Treating Clinician Comments Source Anemia due to acute blood loss Anemia due to acute blood loss Disease Active 2017-09 00:00: 00 [facility] 39 weeks gestation of 39 weeks gestation of Disease Active 2017-09 00:00: 00 [facility] Liveborn by vaginal delivery Liveborn infant by vaginal delivery Disease Active 2017-09 00:00: 00 [facility] Obesity (BMI 30-39.9) Obesity (BMI 30-39.9) Disease Active 2017-09 00:00: 00 [facility] Decreased movement Decreased movement Disease Active 2017-09 00:00: 00 [facility] 38 weeks gestation of 38 weeks gestation of Disease Active 2017-09 00:00: 00 [facility] Threatened labor at term Threatened labor at term Disease Active 2017-09 00:00: 00 [facility] Supervisio n of high risk , antepartum , first trimester Supervisio n of high risk , antepartum , first trimester Disease Active 12-19 00:00: 00 [facility] Multiparit y Multiparit y Disease Active 12-19 00:00: 00 [facility] History of spontaneou s , currently History of spontaneou s , currently Disease Active 12-19 00:00: 00 [facility] Obesity in Obesity in Disease Active 12-19 00:00: 00 [facility] Absence of menstruati on Absence of menstruati on Disease Active 05 00:00: 00 [facility] High-risk High-risk Disease Resolve d 12-02 00:00: 00 2014-02-14 00:00:00 2014-02-14 20:00:46 [facility] Viral gastroente ritis Viral gastroente ritis Disease Resolve d 0 12 00:00: 00 2014-02-14 00:00:00 2014-02-14 20:00:46 [facility] Complete spontaneou s Complete spontaneou s Disease Resolve d 0 6-24 00:00: 00 2013-12-02 00:00:00 2022-04-08 00:25:10 [facility] Teen Teen Disease Resolve d 0 7-05 00:00: 00 2013-05-08 00:00:00 2013-05-08 13:43:49 [facility] Immune to rubella Immune to rubella Disease Resolve d 02-18 00:00: 00 2013-05-08 00:00:00 2013-05-08 13:43:54 [facility] Immune to varicella Immune to varicella Disease Resolve d 02-18 00:00: 00 2013-05-08 00:00:00 2013-05-08 13:43:51 [facility] Abnormal glucose tolerance test Abnormal glucose tolerance test Disease Resolve d 01-23 00:00: 00 2013-03-27 00:00:00 2022-04-08 00:24:20 [facility] Teen Teen Disease Resolve d 01-21 00:00: 00 2013-03-27 00:00:00 2022-04-08 00:24:18 [facility] Allergies, Adverse Reactions, Alerts Allergy Name Allergy Type Status Severity Reaction(s) Onset Date Inactive Date Treating Clinician Comments Source NO KNOWN ALLERGIE S Drug Class Active [facility] Social History Social Habit Start Date Stop Date Quantity Comments Source [facility] function 2024-07-12 00:00:00 2024-07-12 00:00:00 [facility] Alcoholic beverage intake 2024-07-12 00:00:00 2024-07-12 00:00:00 Current non-drinker of alcohol (finding) [facility] Alcohol intake 2023-07-11 00:00:00 2023-07-11 00:00:00 Current non-drinker of alcohol (finding) [facility] Tobacco use and exposure 2013-01-21 00:00:00 2013-01-21 00:00:00 Smokeless tobacco non-user [facility] Sex assigned at 1995 00:00:00 1995 00:00:00 [facility] Smoking Status Start Date Stop Date Source Never smoked tobacco [facility] Medications Ordered Medication Name Filled Medication Name Start Date Stop Date Current Medication? Ordering Clinician Indication Dosage Frequency Signature (SIG) Comments Components Source dexamethaso ne sod phos PF injection 10 mg 2023-09 18:45: 00 07-12 18:44 :00 No 10mg 10 mg, Oral, ONCE, 1 dose, On Sat07/12/24 at 1345, 1 mL [facility] cefTRIAXone (ROCEPHIN) 1,000 mg in NaCl 0.9% (NS) 100 mL MINI-BAG 2022-09 22:00: 00 07-11 22:39 :00 No [id number] 07 1000mg 1,000 mg, IV Piggyback, ONCE, 1 dose, On Shereen 07/11/23 at 1700, Administer over 30 Minutes, 100 mL
Reas on for Anti-Infec tive: Documented Infection< br>Documen raul Infection Site: HEENT
D uration of Therapy: 7 days [facility] dexamethaso ne sod phos PF injection 10 mg 2022-09 21:15: 00 07-11 21:46 :00 No [id number] 07 10mg 10 mg, Slow IV Push, ONCE, 1 dose, On Shereen 07/11/23 at 1615, 1 mL [facility] ketorolac (TORADOL) injection 15 mg 2022-09 20:00: 00 07-11 19:35 :00 No [id number] 07 15mg 15 mg, Slow IV Push, ONCE, 1 dose, On Shereen 07/11/23 at 1500, RANI [facility] iopamidol (ISOVUE 370-500 mL) injection 90 mL 2022-09 19:45: 00 07-11 20:00 :00 No [id number] 07 90mL 90 mL, Intravenou s, ONCE, 1 dose, On Shereen 07/11/23 at 1500, Routine [facility] promethazin e-dextromet horphan 6.25-15 mg/5 mL syrup - 00:00: 00 Yes [id number] 5mL Take 5 mL by mouth 4 (four) times daily as needed for Cough. [facility] vit 33-iron-fol ic-dha (SELECT-OB + DHA) 29 mg iron-1 mg -250 mg combo pack 12-23 00:00: 00 Yes 1{packe t} Take 1 Packet by mouth daily. [facility] Immunizations Ordered Immunization Name Filled Immunization Name Date Status Comments Source Varicella (varivax)(chicken pox) 2013-01-19 00:00:00 Completed Rubella 2012-07-10 00:00:00 Completed TD, NOS 2010-04-23 00:00:00 Completed TD, NOS Unknown Completed [facility] Rubella Unknown Completed [facility] Varicella (varivax)(chicken pox) Unknown Completed [facility] Vital Signs Vital Name Observation Time Observation Value Comments S ource Systolic blood pressure 2024-07-12 18:34:00 147 mm[Hg] [facility] Diastolic blood pressure 2024-07-12 18:34:00 85 mm[Hg] [facility] Heart rate 2024-07-12 18:34:00 100 /min [facility] Body temperature 2024-07-12 18:34:00 36.78 Ashlyn [facility] Respiratory rate 2024-07-12 18:34:00 20 /min [facility] Body height 2024-07-12 18:34:00 160 cm [facility] Body weight 2024-07-12 18:34:00 118.162 kg [facility] BMI 2024-07-12 18:34:00 46.15 kg/m2 [facility] Oxygen saturation in Arterial blood by Pulse oximetry 2024-07-12 18:34:00 100 /min [facility] Systolic blood pressure 2023-07-11 22:42:00 131 mm[Hg] [facility] Diastolic blood pressure 2023-07-11 22:42:00 72 mm[Hg] [facility] Heart rate 2023-07-11 22:42:00 80 /min [facility] Body temperature 2023-07-11 22:42:00 36.94 Ashlyn [facility] Respiratory rate 2023-07-11 22:42:00 21 /min [facility] Oxygen saturation in Arterial blood by Pulse oximetry 2023-07-11 22:42:00 98 /min [place] [facility] Body height 2023-07-11 18:58:00 160 cm [facility] Body weight 2023-07-11 18:58:00 101.606 kg [facility] BMI 2023-07-11 18:58:00 39.68 kg/m2 [facility] Procedures Procedure Date / Time Performed Performing Clinicia n Source CT MAXILLOFACIAL/MANDIBLE W CONTRAST 2023-07-11 19:55:14 Sol Michelle [facility] POCT TEST 2023-07-11 19:35:00 Sol Michelle [facility] COMP. METABOLIC PANEL (10175) 2023-07-11 19:34:00 Sol Michelle [facility] CBC WITH DIFF 2023-07-11 19:34:00 Sol Pierre [facility] URINALYSIS 2023-07-11 19:31:00 Sol Pierre [facility] CONSENT/REFUSAL FOR DIAGNOSIS AND TREATMENT 2023-07-11 18:52:39 Doctor Unassigned, [place] [facility] Encounters Start Date/Time End Date/Time Encounter Type Admission Type Attending Clinicians Care Facility Care Department Encounter ID Source 2024-07-12 13:38:00 2024-07-12 14:00:00 Emergency X YOCASTA ZAPIEN [facility] ERT [id number] [facility] 2024-07-12 13:38:00 2024-07-12 14:00:00 Emergency Yocasta Zapien [facility] AT [facility] [id number] [facility] 2023-11-21 10:00:00 2023-11-21 10:00:00 Outpatient WARREN SALDIVAR [facility] [id number] [facility] 2023-11-05 10:00:00 2023-11-05 10:00:00 Outpatient WARREN SALDIVAR [facility] [id number] [facility] 2023-07-11 13:59:00 2023-07-11 17:51:00 Emergency Sol MichelleSimin [facility] [id number] [facility] 2023-07-11 13:59:00 2023-07-11 17:51:00 Emergency X SOL MICHELLE HANKChris SOL [facility] ERT [id number] [facility] 2022-06-27 10:12:53 2022-06-27 10:12:53 Outpatient [facility] [id number] [place] F Karthik 2020-02-08 15:30:00 2020-02-08 15:30:00 Outpatient ERICKA AVALOS [facility] [id number] [facility] 2020-02-03 00:00:00 2020-02-03 00:00:00 Telephone Ericka Pham [facility] AM[employer]MENT [employer] WORK[employer] [facility] [id number] 2019-12-18 19:45:00 2019-12-18 19:45:00 Outpatient R [facility] [id number] [facility] 2019-12-18 19:45:00 2019-12-18 19:45:00 Outpatient R [facility] [id number] [facility] Results Test Description Test Time Test Comments Results Result Co mments Source [facility] WITH [id number] 20:53:52* Test Item Value Reference Range Interpretation [...] 31.7 g/dL 31.6-35.1 RDW-SD (test code = 91703-8) 40.8 fL 39.0-49.9 RDW-CV (test code = 788-0) 14.3 % 12.0-15.5 PLT (test code = 777-3) 279 See_Comment [Automated messa ge] The system which generated this result transmitted reference range: 166 - 358 10*3/?L. The reference range was not used to interpret this result as normal/abnormal. MPV (test code = 70795-8) 10.0 fL 9.5-12.9 NRBC/100 WBC (test code = 9089675456) 0.0 See_Comment [Automated [place] ssage] The system which generated this result transmitted reference range: 0.0 - 10.0 /100 WBCs. The reference range was not used to interpret this result as normal/abnormal. NRBC x10^3 (test code = 9425486790) See_Comment [Automated messa ge] The system which generated this result transmitted reference range: 10*3/?L. The reference range was not used to interpret this result as normal/abnormal. GRAN MAT (NEUT) % (test code = 770-8) 63.0 % IMM GRAN % (test code = 4813227541) 0.50 % LYMPH % (test code = 736-9) 26.1 % MONO % (test code = 5905-5) 5.8 % EOS % (test code = 713-8) 4.3 % BASO % (test code = 706-2) 0.3 % GRAN MAT x10^3(ANC) (test code = 1309125252) 6.59 10*3/uL 1.88-7.09 IMM GRAN x10^3 (test code = 6542510085) 0.05 10*3/uL 0.00-0.06 LYMPH x10^3 (test code = 731-0) 2.73 10*3/uL 1.32-3.29 MONO x10^3 (test code = 742-7) 0.61 10*3/uL 0.33-0.92 EOS x10^3 (test code = 711-2) 0.45 10*3/uL 0.03-0.39 H BASO x10^3 (test code = 704-7) 0.03 10*3/uL 0.01-0.07 Lab Interpretation (test code = 90159-2) Abnormal [id number] 19:35:00* Test Item Value Reference Range Interpretation Comme [facility] POCT PREG (test code = 1605) Negative On board controls acceptable with C Line (test code = 3574) Yes POCT PREG LOT # (test code = 3575) [id number] POCT PREG TEST DATE ( test code = 3576) 09-25-2024 Lab Interpretation (test cod e = 42347-6) [facility] [id number] 06:46:44* Test Item Value Reference Range Interpretation Comme [facility] TSH, THIRD GENERATION (test code = 2821) 0.929 UIU/ML 0.400-4.100 HEMOGLOBIN [id number] 06:03:59* Test Item Value Reference Range Interpretation Comme [facility] HEMOGLOBIN A1c (test code = 91247) 6.8 % 4.2-5.6 H TUR[employer] AND [employer] GUIDELINES FOR HGB A1C: [...] CONSIDER ALTERNATE TESTING OR LABORATORY CONSULTATION. LIPID [id number] 03:29:16* Test Item Value Reference Range Interpretation [...] SPECIMENS. FOR MOREINFORMATION, SEE CLIENT ANNOUNCEMENT AT [email or web address] RISK RATIO LDL/HDL (test code = 2238) 3.66 RATIO <3.22 H UNLESS OTHERW ISE INDICATED, ALL TESTING PERFORMED ATCL[facility] [employer] [address] [place] [address] PERSONAL LINES INSURANCE ADVISOR: TIFFANY COOL M.D. CLIA NUMBER [id number] [facility] [place]. [id number] Notes Date/Time Note Provider Source 2024-07-12 13:59:38 Pt given printed and verbal discharge instructions regarding acute non-recurrent frontal sinusitis, encouraged hydration, Pt verbalized understanding of instructions, pt awake alert oriented, resp reg unlabored, skin w/d, color appropriate for race, moves all ext well,pt encouraged to follow up with pcp. Advised to seek medical attention for new/prolonged/worsening of symptoms. No adverse reaction to meds given in ER noted upon discharge Awake, alert oriented, resp reg unlabored, skin w/d, pt leaving amb with steady gait, in no apparent distress, T [facility] [employer] 2024-07-12 13:34:05 Pt arrived ambulatory with complaints of cough x2 weeks. 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 No fever. No sick contacts. No shortness of breath. No ear pain. No sore throat. She has been using DayQuil and NyQuil at home and reports it helps her for approximately 30 minutes. She does have history of asthma as a child but has since outgrown it. She does not smoke. No history of diabetes. Here for evaluation. Past Medical History/Immunizations: Past Medical History: Diagnosis Date Absence of menstruation 10/28/2015 Anemia due to acute blood loss 08/07/2018 Asthma sports induced, childhood Diabetes mellitus gestational STD (sexually transmitted disease) 07/2012 chlamydia Tetanus received in last 5 years: Unknown Allergies: No Known Allergies Past Social History: Tobacco Use Never smoked or used smokeless tobacco. Alcohol Use No. Drug Use No. Sexual Activity Sexually active; Partners: Male; Control/Protection: Condom, None. Comments: Last sexual intercourse 12/15/2017 Past Surgical History: History reviewed. No pertinent surgical history. Review of Systems: Review of Systems Constitutional: Negative for chills and fever. HENT: Positive for congestion and sinus pressure. Respiratory: Positive for cough. Cardiovascular: Negative for chest pain. Gastrointestinal: Negative for abdominal pain. Genitourinary: Negative for dysuria. Musculoskeletal: Negative for arthralgias and neck pain. Skin: Negative for wound. Neurological: Negative for dizziness. Psychiatric/Behavioral: Negative for agitation. Physical Exam: ED Triage Vitals [07/12/24 1334] Weight 118.2 kg (260 lb 8 oz) Actual or estimated Actual Height 1.6 m (5' 3") BP (!) 147/85 Pulse 100 Resp 20 Temp 36.8 ?C (98.2 ?F) Temp source Oral SpO2 100 % Measured on Room air Physical Exam Vitals and nursing note reviewed. Constitutional: Appearance: Normal appearance. She is obese. HENT: Head: Normocephalic and atraumatic. Right Ear: Tympanic membrane and ear canal normal. Left Ear: Tympanic membrane and ear canal normal. Nose: Congestion present. Right Sinus: Frontal sinus tenderness present. No maxillary sinus tenderness. Left Sinus: No maxillary sinus tenderness or frontal sinus tenderness. Mouth/Throat: Mouth: Mucous membranes are dry. Pharynx: Oropharynx is clear. No oropharyngeal exudate or posterior oropharyngeal erythema. Cardiovascular: Rate and Rhythm: Normal rate and regular rhythm. Pulses: Normal pulses. Pulmonary: Effort: Pulmonary effort is normal. No respiratory distress. Breath sounds: No stridor. No wheezing or rhonchi. Comments: The patient is able to speak in full and complete sentence without difficulty. No use of accessory muscles. Abdominal: General: There is no distension. Musculoskeletal: General: Normal range of motion. Cervical back: Normal range of motion and neck supple. Skin: General: Skin is warm. Neurological: General: No focal deficit present. Mental Status: She is alert. Radiology: No orders to display Lab Results: Lab Results - No data to display EKG: If EKG completed, see Procedure Note. Orders and Treatments: No orders of the defined types were placed in this encounter. Orders Placed This Encounter Medications dexamethasone sod phos PF injection 10 mg First Provider Eval: ED Events Date/Time Event User Comments 07/12/24 1326 Medical Screening Begins YOCASTA ZAPIEN DO -- 07/12/24 1326 First Provider Evaluation YOCASTA ZAPIEN DO -- ED COURSE Diagnosis/Impression as of 07/12/24 1342 Acute non-recurrent frontal sinusitis Procedures: Procedures MDM: Medical Decision Making The patient presents from home for evaluation for cough as well as nasal congestion for the past 2 weeks. No fever. No sick contacts. No shortness of breath. No ear pain. No sore throat. She has been using DayQuil and NyQuil at home and reports it helps her for approximately 30 minutes. She does have history of asthma as a child but has since outgrown it. She does not smoke. No history of diabetes. Vital signs are stable here in the ER. The patient is obese. Her lungs are clear bilaterally. She has no use of accessory muscles and is able to speak in full and complete sentences without difficulty. She has dry mucous membranes. Her pharynx is pink and without exudates or erythema. She has right sided frontal sinus tenderness with palpation. Will give a dose of Decadron for sinusitis. Recommend she use sinus rinses as well as an lpus-oxr-gweteoq decongestant such as Claritin D, Zyrtec-D or Janet-D as needed. She remained stable here in the ER and is okay for discharge home with PCP follow-up. Problems Addressed: Acute non-recurrent frontal sinusitis: acute illness or injury Risk OTC drugs. Prescription drug management. Flowsheet Documentation: Scoring Tools: No data recorded Disposition/Condition: ED Disposition ED Disposition Discharge Condition Stable Comment -- Discharge Medications: Patient's Medications START taking these medications No medications on file CONTINUE taking these medications which have NOT CHANGED VIT 95-MWPF-JBUNK-DHA (SELECT-OB + DHA) 29 MG IRON-1 MG -250 MG COMBO PACK Take 1 Packet by mouth daily. PROMETHAZINE-DEXTROMETHORPHAN 6.25-15 MG/5 ML SYRUP Take 5 mL by mouth 4 (four) times daily as needed for Cough. START taking Modified Medications as Prescribed No medications on file STOP taking these medications No medications on file Follow-up: Electronically signed by: Yocasta Zapien DO 07/12/24 4822 T [facility]
[2025-01-05] MEDS ORDERED: IPRATROPIUM BROM 0.5MG/2.5ML ONE (01:00)
[2025-01-05] MEDS ORDERED: HYDROCODONE/CHLORPHEN 5 ML/OSYR ONE (01:00)
[2025-01-05] MEDS ORDERED: ALBUTEROL 2.5 MG/3 ML NEB SOL ONE (01:00)
[2025-01-05] MEDS ORDERED: KETOROLAC 30 MG/ML INJ ONE (01:00)
[2025-01-05 01:11] LABS: Influenza A Ag Negative; Influenza B Ag Negative; SARS-CoV-2 Antigen Rapid Res Negative (Negative)
[2025-01-05 02:27] LABS: Absolute Eosinophils 0.2 K/uL (0-0.5); Absolute Lymphocytes (CBC) 3.8 K/uL (0.7-4.9); Absolute Monocytes 0.6 K/uL (0.1-1.3); Absolute Neutrophil 3.2 K/uL (1.8-8.0); Basophils % 0.3 % (0-1.3); Hematocrit 39.2 % (36.0-45.0); Lymphocytes % 48.6 % (15.3-44.8); MCH 25.6 pg (27.0-35.0); MCHC 33.1 g/dL (32.0-36.0); MCV 77.3 fL (80-100); MPV 8.1 fL (7.6-11.3); Monocytes % 7.4 % (3.3-12.3); Neutrophils % 41.7 % (41.7-73.7); Nucleated Red Blood Cells % 0.2 % (0-0); Platelets 203 thou/uL (152-406); RBC Red Blood Cell Count 5.08 M/uL (3.86-4.86)
[2025-01-05 02:30] LABS: Anion Gap 11.7 mEq/L (5.0-15.0); Potassium 3.7 mEq/L (3.5-5.1)
--- NOTE | 2025-01-05 02:43 | EDPHYS ---
Physician Documentation [facility] Name: Amy Rey Age: 29 yrs Sex: Female : 1995 Arrival Date: 01/04/2025 Time: 23:09 Bed 16 Private MD: ED Physician Mendoza Zhao HPI: 01/05 01:36 This 29 yrs old Female presents to ER via Ambulatory with complaints of Cough, sb4 Congestion, Shortness Of Breath. 01:36 fever, painful cough, congestion x 2 days. mom has been sick with similar symptoms. sb4 some diarrhea. no nausea or vomiting, although her cough is making her gag. has been taking OTC medications without significant relief. 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 Patient has never been vaccinated. - Infectious Disease History:: Denies. - Social history:: Smoking status: Patient denies any tobacco usage or history of. ROS: 01/05 01:36 Skin: Negative for injury, rash, and discoloration, sb4 Constitutional: Positive for fever, Cardiovascular: Positive for chest pain, with cough, Respiratory: Positive for cough, Abdomen/GI: Positive for diarrhea, All other systems are negative, Exam: 01:38 Head/Face: Normocephalic, atraumatic. Eyes: Extra-ocular motions intact. Periorbital sb4 areas with no swelling, redness, or edema. Cardiovascular: Regular rate and rhythm with a normal S1 and S2. Respiratory: No increased work of breathing, no retractions or nasal flaring. Abdomen/GI: Soft, non-tender, no distension. Skin: Warm, dry with normal turgor. Normal color with no rashes, no lesions, and no evidence of cellulitis. 01:38 Constitutional: The patient appears alert, awake, obese, obviously ill, 01:38 ENT: Posterior pharynx: Tonsils: tonsillar stone right tonsil, Vital Signs: 01/04 23:53 BP 138 / 93; Pulse 104; Resp 17; Temp 99.7(O); Pulse Ox 99% on R/A; Weight 104.33 kg; dd2 Height 5 ft. 3 in. ; 01/05 01:00 BP 136 / 86; Pulse 100; Resp 16; Pulse Ox 96% ; jb4 01/04 23:53 Body Mass Index 40.74 (104.33 kg, 160.02 cm) dd2 MDM: 01/04 23:16 Medical Screening Exam initiated sb4 01/05 02:42 Data reviewed: vital signs, nurses notes, lab test result(s), radiologic studies, I sb4 have discussed the patient's presentation/case with the attending Emergency Department Physician; and as a result, I will discharge patient. Historians other than the Patient: Parent: mother. Care significantly affected by the following chronic conditions: Diabetes, Obesity. Counseling: I had a detailed discussion with the patient and/or guardian regarding the historical points, exam findings, and any diagnostic results supporting the discharge/admit diagnosis, the presence of at least one elevated blood pressure reading (>120/80) during this emergency department visit, lab results, radiology results, the need for outpatient follow up, for definitive care, to return to the emergency department if symptoms worsen or persist or if there are any questions or concerns that arise at home. 01/05 00:41 Order name: COVID-19 Ag + Flu A+B Ag; Complete Time: 01:13 ha1 01/05 00:45 Order name: Group A Streptococcus Rapid; Complete Time: 01:34 sb4 01/05 00:45 Order name: CBC with Diff sb4 01/05 00:45 Order name: BMP; Complete Time: 02:31 sb4 01/05 01:34 Order name: Throat Culture EDMS 01/05 02:30 Order name: Manual Differential EDMS 01/05 01:35 Order name: Chest Pa And Lat (2 Views) XRAY sb4 Administered Medications: 01:11 Drug: DuoNeb Nebulize (3:1) (2.5 mg - 0.5 mg) 3 ml Nebulizer once Route: Nebulizer; ha1 03:15 Follow up: Response: No adverse reaction; Marked relief of symptoms jb4 01:12 Drug: Tussionex Pennkinetic ER PO Suspension 5 ml PO once Route: PO; ha1 03:15 Follow up: Response: No adverse reaction; Marked relief of symptoms jb4 01:12 Drug: Ketorolac IVP 15 mg IVP once Route: IVP; Site: left antecubital; ha1 03:15 Follow up: Response: No adverse reaction; Marked relief of symptoms jb4 03:04 Drug: AZITHromycin PO 500 mg PO once Route: PO; jb4 03:20 Follow up: Response: Medication administered at discharge. jb4 03:04 Drug: predniSONE PO 40 mg PO once Route: PO; jb4 03:20 Follow up: Response: Medication administered at discharge. jb4 Disposition: 03:49 Co-signature as Attending Physician, Mendoza Zhao MD I agree with the assessment sp4 and plan of care. I reviewed the patient's care provided by the Advanced Practice Provider and agree with the diagnosis and treatment plan. Disposition Summary: 01/05/25 02:43 Discharge Ordered Notes: Location: Home sb4 Problem: new sb4 Symptoms: have improved sb4 Condition: Stable sb4 Diagnosis - Acute upper respiratory infection, unspecified sb4 Followup: sb4 - With: Emergency Department - When: As needed - Reason: Trouble breathing, Worsening of condition Discharge Instructions: - Discharge Summary Sheet sb4 - Upper Respiratory Infection, Adult, [id number] sb4 Forms: - Antibiotic Education sb4 - Patient Portal Instructions sb4 - Leadership Thank You Letter sb4 Prescriptions: - albuterol sulfate 90 mcg/actuation Inhalation HFA Aerosol Inhaler - inhale 1 puff INHALATION route every 6 hours as needed for shortness of breath; sb4 1 Applicator; Refills: 0, Product Selection Permitted - Zithromax Z-Ming 250 mg Oral tablet - take 1 tablet ORAL route once daily for 4 days; 4 tablet; Refills: 0, Product sb4 Selection Permitted - Prednisone 20 mg Oral Tablet - take 1 tablet ORAL route every 12 hours for 5 days; 10 tablet; Refills: 0, sb4 Product Selection Permitted - Guaifenesin AC 10-100 mg/5 mL Oral Liquid - take 10 milliliters ORAL route every 4 hours As needed; 240 milliliter; sb4 Refills: 0, Product Selection Permitted Signatures: Dispatcher [employer] Reji Diaz RN RN jb4 Leti Cotton RN RN ha1 Estephania Balderrama PA-C PA-C sb4 Mendoza Zhao MD MD sp4 GHULAM WASHINGTON, RN RN dd2 Corrections: (The following items were deleted from the chart) 01/04 23:55 23:55 Allergies: NKDA; dd2 dd2 01/05 00:41 00:41 COVID-19 Ag + Flu A+B Ag+I.LAB.BRZ ordered. EDMS EDMS 00:45 00:45 Group A Streptococcus Rapid Sc+I.LAB.BRZ ordered. EDMS EDMS 03:15 00:45 IV Saline Lock ordered. sb4 jb4
--- NOTE | 2025-01-05 02:43 | ER ---
Nurse's Notes [facility] Name: Amy Rey Age: 29 yrs Sex: Female : 1995 Arrival Date: 01/04/2025 Time: 23:09 Bed 16 Private MD: Diagnosis: Acute upper respiratory infection, unspecified Presentation: 01/04 23:53 Chief complaint: Patient states: FEVER, COUGH WITH CHEST PAIN, CONGESTION AND SOB X1 dd2 DAY. Coronavirus screen: chills, congestion, cough unrelated to allergies, fever, runny nose, shortness of breath. Ebola Screen: No symptoms or risks identified at this time. Resp Distress? No respiratory distress is noted at this time. Initial Sepsis Screen: Does the patient meet any 2 criteria? No. Patient's initial sepsis screen is negative. Does the patient have a suspected source of infection? No. Patient's initial sepsis screen is negative. Risk Assessment: Do you want to hurt yourself or someone else? Patient reports no desire to harm self or others. Onset of symptoms was January 03, 2025. 23:53 Method Of Arrival: Ambulatory dd2 23:53 Acuity: TARAH 3 dd2 Triage Assessment: 23:55 General: Appears in no apparent distress. uncomfortable, Behavior is calm, cooperative, dd2 appropriate for age. Pain: Complains of pain in chest Pain does not radiate. Pain currently is 5 out of 10 on a pain scale. Aggravated by COUGHING. Respiratory: Reports shortness of breath at rest on exertion cough that is non-productive, pain with cough since 01/03/2025 Airway is patent Respiratory effort is even, unlabored, Respiratory pattern is regular, symmetrical, Breath sounds are clear bilaterally. 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 Patient has never been vaccinated. - Infectious Disease History:: Denies. - Social history:: Smoking status: Patient denies any tobacco usage or history of. Screenin/15 03:20 [facility] ED Fall Risk Assessment (Adult) History of falling in the last 3 months, jb4 including since admission No falls in past 3 months (0 pts) Confusion or Disorientation No (0 pts) Intoxicated or Sedated No (0 pts) Impaired Gait No (0 pts) Mobility Assist Device Used No (0 pt) Altered Elimination No (0 pt) Score/Fall Risk Level 0 - 2 = Low Risk Oriented to surroundings, Maintained a safe environment. Abuse screen: Denies threats or abuse. Nutritional screening: No deficits noted. Tuberculosis screening: No symptoms or risk factors identified. Assessment: 02:04 Reassessment: Patient appears in no apparent distress at this time. Patient and/or jb4 family updated on plan of care and expected duration. Pain level reassessed. Patient is alert, oriented x 3, equal unlabored respirations, skin warm/dry/pink. 03:20 Reassessment: Patient appears in no apparent distress at this time. Patient and/or jb4 family updated on plan of care and expected duration. Pain level reassessed. Patient is alert, oriented x 3, equal unlabored respirations, skin warm/dry/pink. Vital Signs: 01/04 23:53 BP 138 / 93; Pulse 104; Resp 17; Temp 99.7(O); Pulse Ox 99% on R/A; Weight 104.33 kg; dd2 Height 5 ft. 3 in. ; 01/05 01:00 BP 136 / 86; Pulse 100; Resp 16; Pulse Ox 96% ; jb4 01/04 23:53 Body Mass Index 40.74 (104.33 kg, 160.02 cm) dd2 ED Course: 01/04 23:12 Patient arrived in ED. jj6 23:15 Estephania Balderrama PA-C is PHCP. sb4 23:15 Mendoza Zhao MD is Attending Physician. sb4 23:55 Triage completed. dd2 23:57 Arm band placed on right wrist. dd2 01/05 01:11 Inserted saline lock: 20 gauge in left antecubital area, using aseptic technique. Blood rk3 collected. Flushed with 10 mL NS IV discontinued, intact, bleeding controlled, Pressure dressing applied. 01:12 Group A Streptococcus Rapid Sent. rk3 01:12 CBC with Diff Sent. rk3 01:12 BMP Sent. rk3 01:40 Inserted saline lock: 20 gauge in right antecubital area, using aseptic technique. [facility] Blood collected. Flushed with 10 mL NS. 02:17 Chest Pa And Lat (2 Views) XRAY In Process Unspecified. EDMS 03:20 Patient has correct armband on for positive identification. Bed in low position. Call jb4 light in reach. Side rails up X 1. Provided Education on: discharge instructions.. 03:20 No provider procedures requiring assistance completed. IV discontinued, intact, jb4 bleeding controlled, No redness/swelling at site. Pressure dressing applied. Administered Medications: 01:11 Drug: DuoNeb Nebulize (3:1) (2.5 mg - 0.5 mg) 3 ml Nebulizer once Route: Nebulizer; ha1 03:15 Follow up: Response: No adverse reaction; Marked relief of symptoms jb4 01:12 Drug: Tussionex Pennkinetic ER PO Suspension 5 ml PO once Route: PO; ha1 03:15 Follow up: Response: No adverse reaction; Marked relief of symptoms jb4 01:12 Drug: Ketorolac IVP 15 mg IVP once Route: IVP; Site: left antecubital; ha1 03:15 Follow up: Response: No adverse reaction; Marked relief of symptoms jb4 03:04 Drug: AZITHromycin PO 500 mg PO once Route: PO; jb4 03:20 Follow up: Response: Medication administered at discharge. jb4 03:04 Drug: predniSONE PO 40 mg PO once Route: PO; jb4 03:20 Follow up: Response: Medication administered at discharge. jb4 Medication: 03:20 VIS not applicable for this client. jb4 Outcome: 02:43 Discharge ordered by . johnna 03:20 Discharged to home ambulatory, jb4 03:20 Condition: stable 03:20 Discharge instructions given to patient, Instructed on discharge instructions, follow up and referral plans. medication usage, Demonstrated understanding of instructions, follow-up care, medications, Prescriptions given X 2, 03:22 Patient left the ED. jb4 Signatures: Dispatcher [employer] [facility] Reji Silva RN RN jb4 Jaja Granados jj6 Leti Cotton RN RN ha1 Estephania Balderrama, PA-C PA-C [email or web address] Irma García [facility] GHULAM WASHINGTON RN RN dd2 Giovani Rashid rk3 Corrections: (The following items were deleted from the chart) 01/04 23:55 23:55 Allergies: NKDA; dd2 dd2
[2025-01-05] MEDS ORDERED: predniSONE 20 MG TAB ONE (02:52)
[2025-01-05] MEDS ORDERED: AZITHROMYCIN 250 MG TAB ONE (02:52)
[2025-01-05 02:58] LABS: Band Neutrophils 9 % (0-1); Differential Total Cells Count 100; Eosinophils 3 % (0-3); Lymphocytes 41 % (15-42); Monocytes 5 % (0-10); Reactive Lymphocytes 9 %; Segmented Neutrophils 33 % (40-80)
[2025-01-05 02:59] LABS: Blood Morphology Comment NOT SEEN (NOT SEEN); Platelet Estimate ADEQ
[2025-01-05 03:47] VITALS: TEMP 99.7
[2025-01-05 03:48] VITALS: BP 136/86; O2SAT 96
--- NOTE | 2025-01-05 05:54 | RAD REPORT ---
EXAM: XR Chest, 2 Views CLINICAL HISTORY: The patient is 29 years old and is Female; Congestion, cough. TECHNIQUE: Two views of the chest. COMPARISON: No relevant prior studies available. FINDINGS: Lungs: No pulmonary vascular congestion or consolidation. Pleural space: Unremarkable. No pneumothorax. Heart: Unremarkable. No cardiomegaly. Mediastinum: Unremarkable. Bones/joints: No acute fracture visualized. Upper abdomen: No free air in the visualized upper abdomen. IMPRESSION: No acute cardiopulmonary process identified. Electronically signed by: Yasmeen Couch MD 01/05/2025 05:16 AM CDT RP V2 Due to temporary technical issues with the PACS/[employer] reporting system, reports are being christen d by the in-house radiologist without review as a courtesy to ensure prompt reporting the interpreting radiologist is fully responsible for the content of the report. Transcribed Date/Time: 01/05/2025 5:54 AM
== END 2025-01-05 03:22 | disposition home or self-care (01) ==
LOC: ER 23:09
DX: J06.9 Acute upper respiratory infection, unspecified (principal); Z11.52 Encounter for screening for COVID-19
CPT/HCPCS: 36415; 71046; 80048; 85025; 87070; 87428; J7512; J7613; J7644